=== PATIENT | female | born 1940 | race American Indian/Alaskan Native ===

== ENCOUNTER → 2017-02-08 | Outpatient (CLI) | payer MEDICARE ==
--- NOTE | 2017-02-08 09:42 | XR ---
EXAMINATION TYPE: XR abdomen 1V DATE OF EXAM: 02/08/2017 COMPARISON: NONE HISTORY: Left lower quadrant pain TECHNIQUE: One view abdominal series FINDINGS: The osseous structures are intact. The bowel gas pattern is nonspecific. There is a 3 mm calculus overlying the upper pole the right kidney and overlying the region of the ri ght UPJ. There are at least 3 calcifications overlying the left renal outline the largest of which measures 6 mm in the mid and upper poles. Hypertrophic change of the spine. No evidence of bowel obstruction with extensive retained fecal debr is. Previous gallbladder surgery noted. Vascular calcification suspected in the pelvis. Aortic calcif ication noted. IMPRESSION: 1. Nonspecific abdomen. Bilateral nephrolithiasis with suspected right UPJ calcification measuring 3 mm in upper pole 3 mm right renal calculus. 2. Punctate left-sided nephrolithiasis. Larger 6 mm calcification in the midpole. 2 definite calcific ations are seen.
== END | disposition home or self-care (01) ==
LOC: RADXRMAIN 09:19
PROVIDERS: ATTEND Urology
DX: N20.0 Calculus of kidney (principal)
CPT/HCPCS: 74000

== ENCOUNTER 2017-04-19 08:05 | Inpatient (IN) | payer MEDICARE ==
[2017-04-19] MEDS ORDERED: NITROGLYCERIN OINT 1 INCH/GM PACKET TOPICAL STA (08:37)
[2017-04-19] MEDS ORDERED: ASPIRIN 81 MG PO STA (08:37)
--- NOTE | 2017-04-19 08:42 | ED ---
General Adult HPI - General Chief complaint: Chest Pain Stated complaint: Chest pain Time Seen by Provider: 04/19/17 08:30 Source: patient, RN notes reviewed Mode of arrival: ambulatory Limitations: no limitations - History of Present Illness Initial comments: Patient is a pleasant 76-year-old female presenting to the emergency Department with chest discomfort. Onset was around 5 AM this morning. Patient was arty awake. Discomfort felt like tightness without radiation. No shortness of breath. Patient did feel nauseated and diaphoretic. Patient took 3 nitroglycerin with slow improvement and resolution of discomfort. Discomfort feels somewhat similar to previous times when she needed stents. Patient did have a recent abnormal stress test and is scheduled for heart catheterization in the beginning of April. - Related Data Home Medications Medication Instructions Recorded Confirmed Acetaminophen Tab [Tylenol Tab] 325 mg PO Q6H PRN 04/19/17 04/19/17 Aspirin [Adult Low Dose Aspirin EC] 81 mg PO DAILY 04/19/17 04/19/17 Beclomethasone Dip 80 Mcg/Puff 1 puff INHALATION RT-DAILY PRN 04/19/17 04/19/17 [Qvar 80 mcg] Clopidogrel [Plavix] 75 mg PO DAILY 04/19/17 04/19/17 Losartan/Hydrochlorothiazide 1 tab PO DAILY 04/19/17 04/19/17 [Hyzaar 100-12.5 Tablet] Vits A,C,E/Lutein/Minerals 1 tab PO DAILY 04/19/17 04/19/17 [Ocuvite with Lutein Tablet] amLODIPine [Norvasc] 2.5 mg PO DAILY 04/19/17 04/19/17 Allergies Allergy/AdvReac Type Severity Reaction Status Date / Time clarithromycin Allergy Unknown Verified 04/19/17 09:19 morphine Allergy Unknown Verified 04/19/17 09:19 omeprazole Allergy Unknown Verified 04/19/17 09:19 Penicillins Allergy Unknown Verified 04/19/17 09:19 pravastatin Allergy Unknown Verified 04/19/17 09:19 Sulfa (Sulfonamide Allergy Unknown Verified 04/19/17 09:19 Antibiotics) trimethoprim Allergy Unknown Verified 04/19/17 09:19 Review of Systems ROS Statement: Those systems with pertinent positive or pertinent negative responses have been documented in the HPI. ROS Other: All systems not noted in ROS Statement are negative. Constitutional: Denies: fever Eyes: Denies: eye pain ENT: Denies: ear pain Respiratory: Denies: cough, dyspnea Cardiovascular: Reports: chest pain Endocrine: Denies: fatigue Gastrointestinal: Reports: nausea. Denies: abdominal pain Genitourinary: Denies: dysuria Musculoskeletal: Denies: back pain Skin: Denies: rash Neurological: Denies: weakness Past Medical History Past Medical History: Asthma, Hypertension Additional Past Medical History / Comment(s): 30 day heart monitor, History of Any Multi-Drug Resistant Organisms: None Reported Past Surgical History: Cholecystectomy, Hysterectomy Additional Past Surgical History / Comment(s): chemical stress test, 2 stents in left kidney, right rotator cuff Past Psychological History: Anxiety Smoking Status: Never smoker Past Alcohol Use History: None Reported Past Drug Use History: None Reported General Exam Limitations: no limitations General appearance: alert, in no apparent distress Head exam: Present: atraumatic Eye exam: Present: normal appearance, PERRL ENT exam: Present: normal oropharynx Neck exam: Present: normal inspection Respiratory exam: Present: normal lung sounds bilaterally Cardiovascular Exam: Present: regular rate, normal rhythm Expanded Peripheral pulses: 2+: Radial (R), Radial (L), Dorsalis Pedis (R), Dorsalis Pedis (L) GI/Abdominal exam: Present: soft. Absent: tenderness Extremities exam: Present: normal inspection. Absent: pedal edema, calf tenderness Neurological exam: Present: alert Psychiatric exam: Present: normal affect, normal mood Skin exam: Present: normal color Course Vital Signs 04/19/17 04/19/17 04/19/17 08:07 09:12 10:00 Temperature 97.5 F L Pulse Rate 70 59 L 64 Respiratory 16 18 18 Rate Blood Pressure 177/78 163/89 168/86 O2 Sat by Pulse 100 99 99 Oximetry EKG Findings - EKG Comments: EKG Findings:: Normal sinus rhythm 69. AL 138. QRS 140. QT 488. QTC 522. Left axis. Right bundle branch block. Nonspecific T waves. Medical Decision Making - Medical Decision Making Patient reevaluated and resting comfortably in bed. Patient updated on results and plan. Case discussed in detail with Dr. Lucas, who will admit for Dr. Trinidad. - Lab Data Result diagrams: 04/19/17 08:24 04/19/17 08:24 Lab Results 04/19/17 04/19/17 04/19/17 Range/Units 08:24 08:24 08:24 WBC 8.5 (3.8-10.6) k/uL RBC 4.31 (3.80-5.40) m/uL Hgb 14.3 (11.4-16.0) gm/dL Hct 40.1 (34.0-46.0) % MCV 93.1 (80.0-100.0) fL MCH 33.2 (25.0-35.0) pg MCHC 35.7 (31.0-37.0) g/dL RDW 12.3 (11.5-15.5) % Plt Count 301 (150-450) k/uL Neutrophils % 61 % Lymphocytes % 27 % Monocytes % 6 % Eosinophils % 2 % Basophils % 1 % Neutrophils # 5.2 (1.3-7.7) k/uL Lymphocytes # 2.3 (1.0-4.8) k/uL Monocytes # 0.5 (0-1.0) k/uL Eosinophils # 0.2 (0-0.7) k/uL Basophils # 0.1 (0-0.2) k/uL PT (9.0-12.0) sec INR (<1.2) APTT (22.0-30.0) sec Sodium 142 (137-145) mmol/L Potassium 3.5 (3.5-5.1) mmol/L Chloride 104 (98-107) mmol/L Carbon Dioxide 26 (22-30) mmol/L Anion Gap 12 mmol/L BUN 12 (7-17) mg/dL Creatinine 0.68 (0.52-1.04) mg/dL Est GFR (MDRD) Af Amer >60 (>60 ml/min/1.73 sqM) Est GFR (MDRD) Non-Af >60 (>60 ml/min/1.73 sqM) Glucose 131 H (74-99) mg/dL Calcium 9.8 (8.4-10.2) mg/dL Magnesium 1.7 (1.6-2.3) mg/dL Total Bilirubin 1.6 H (0.2-1.3) mg/dL AST 23 (14-36) U/L ALT 19 (9-52) U/L Alkaline Phosphatase 88 (38-126) U/L Total Creatine Kinase 107 (30-135) U/L CK-MB (CK-2) 0.8 (0.0-2.4) ng/mL CK-MB (CK-2) Rel Index 0.7 Troponin I <0.012 (0.000-0.034) ng/mL Total Protein 7.0 (6.3-8.2) g/dL Albumin 4.2 (3.5-5.0) g/dL 04/19/17 Range/Units 08:24 WBC (3.8-10.6) k/uL RBC (3.80-5.40) m/uL Hgb (11.4-16.0) gm/dL Hct (34.0-46.0) % MCV (80.0-100.0) fL MCH (25.0-35.0) pg MCHC (31.0-37.0) g/dL RDW (11.5-15.5) % Plt Count (150-450) k/uL Neutrophils % % Lymphocytes % % Monocytes % % Eosinophils % % Basophils % % Neutrophils # (1.3-7.7) k/uL Lymphocytes # (1.0-4.8) k/uL Monocytes # (0-1.0) k/uL Eosinophils # (0-0.7) k/uL Basophils # (0-0.2) k/uL PT 10.2 (9.0-12.0) sec INR 1.0 (<1.2) APTT 22.8 (22.0-30.0) sec Sodium (137-145) mmol/L Potassium (3.5-5.1) mmol/L Chloride (98-107) mmol/L Carbon Dioxide (22-30) mmol/L Anion Gap mmol/L BUN (7-17) mg/dL Creatinine (0.52-1.04) mg/dL Est GFR (MDRD) Af Amer (>60 ml/min/1.73 sqM) Est GFR (MDRD) Non-Af (>60 ml/min/1.73 sqM) Glucose (74-99) mg/dL Calcium (8.4-10.2) mg/dL Magnesium (1.6-2.3) mg/dL Total Bilirubin (0.2-1.3) mg/dL AST (14-36) U/L ALT (9-52) U/L Alkaline Phosphatase (38-126) U/L Total Creatine Kinase (30-135) U/L CK-MB (CK-2) (0.0-2.4) ng/mL CK-MB (CK-2) Rel Index Troponin I (0.000-0.034) ng/mL Total Protein (6.3-8.2) g/dL Albumin (3.5-5.0) g/dL - Radiology Data Radiology results: image reviewed (Chest x-ray shows no acute process) Critical Care Time Critical Care Time: Yes Total Critical Care Time: 31 Disposition Clinical Impression: Unstable angina pectoris Disposition: ADMITTED IP TO THIS HOSP Referrals: Pablo Trinidad MD [Primary Care Provider] - 1-2 days Decision Time: 10:55
--- NOTE | 2017-04-19 08:53 | XR ---
EXAMINATION TYPE: XR chest 2V DATE OF EXAM: 04/19/2017 COMPARISON: NONE TECHNIQUE: PA and lateral views submitted. HISTORY: Chest pain FINDINGS: The lungs are clear and there is no pneumothorax, pleural effusion, or focal pneumonia. Postsurgica l change right shoulder. Atherosclerotic change aorta. Hyperinflation suggests COPD. And previous cor onary artery stenting. Diffuse osteopenia and arthropathy of the AC joints. No overt failure. Surgical clips in the right upper quadrant noted. IMPRESSION: 1. Correlate for COPD..
[2017-04-19 09:51] LABS: Basophils # (A) 0.1 k/uL (0-0.2); Basophils % (A) 1 %; CH 32.3; CHCM 34.8; Eosinophils # (A) 0.2 k/uL (0-0.7); Eosinophils % (A) 2 %; HCT 40.1 % (34.0-46.0); HDW 2.54; HGB 14.3 gm/dL (11.4-16.0); Luc # (Auto) 0.21; Luc % (Auto) 3; Lymphocytes # (A) 2.3 k/uL (1.0-4.8); Lymphocytes % (A) 27 %; MCH 33.2 pg (25.0-35.0); MCHC 35.7 g/dL (31.0-37.0); MCV 93.1 fL (80.0-100.0); Mean Platelet Volume 7.2; Monocytes # (A) 0.5 k/uL (0-1.0); Monocytes % (A) 6 %; Neutrophils # (A) 5.2 k/uL (1.3-7.7); Neutrophils % (A) 61 %; RBC 4.31 m/uL (3.80-5.40); RDW 12.3 % (11.5-15.5); WBC 8.5 k/uL (3.8-10.6); WBC (Perox) 8.38
[2017-04-19 09:52] LABS: Partial Thromboplastin Time 22.8 sec (22.0-30.0); Prothrombin Time 10.2 sec (9.0-12.0)
[2017-04-19 09:56] LABS: ALT 19 U/L (9-52); AST 23 U/L (14-36); Alkaline Phosphatase 88 U/L (38-126); Anion Gap 12 mmol/L; Blood Urea Nitrogen 12 mg/dL (7-17); Calcium 9.8 mg/dL (8.4-10.2); Carbon Dioxide 26 mmol/L (22-30); Chloride 104 mmol/L (98-107); Glucose 131 mg/dL (74-99); Magnesium 1.7 mg/dL (1.6-2.3); Non-African American GFR(MDRD) >60 (>60 ml/min/1.73 sqM); Potassium 3.5 mmol/L (3.5-5.1); Sodium 142 mmol/L (137-145); Total Bilirubin 1.6 mg/dL (0.2-1.3)
[2017-04-19 10:16] LABS: Creatine Kinase 107 U/L (30-135)
[2017-04-19 10:28] LABS: Creatine Kinase MB 0.8 ng/mL (0.0-2.4); Troponin I <0.012 ng/mL (0.000-0.034)
[2017-04-19] MEDS ORDERED: NITROGLYCERIN SL TABS 0.4 MG TAB SUBLINGUAL PRN (10:56)
[2017-04-19] MEDS ORDERED: HEPARIN SODIUM,PORCINE 5,000 UNIT/ML 1 ML VIAL IV ONE (10:56)
[2017-04-19] MEDS: HEPARIN SODIUM,PORCINE/D5W PMX 25,000 UNIT in DEXTROSE/WATER 1 500ML.BAG IV SCH (11:31)
[2017-04-19] MEDS ORDERED: NITROGLYCERIN OINT 1 INCH/GM PACKET TOPICAL SCH (12:00)
[2017-04-19 14:44] LABS: Creatine Kinase 82 U/L (30-135)
[2017-04-19 14:57] LABS: Creatine Kinase MB 0.6 ng/mL (0.0-2.4); Troponin I <0.012 ng/mL (0.000-0.034)
--- NOTE | 2017-04-19 15:32 | P.CRDCN ---
History of Present Illness Consult date: 04/19/17 History of present illness: This is a 76-year-old female. She follows with Dr. Harris as an outpatient. She has past medical history significant for CAD with previous stenting at [facility] in 2005 and again in 2009. She underwent diagnostic cath in 2013 which revealed left main free of disease, circumflex free of disease, LAD with long area of stenting in mid-region with an area of restenosis 30-40% and distal to stent 50% stenosis. 1st diagonal with 80% ostial stenosis, 2nd with 60 -70% ostial stenosis. She recently underwent a Lexiscan in the office and it revealed evidence of moderate reversible defect involving ateroapical and laterl ischemia in area of LAD with fair systolic function suggestive of hypokinesia of inferior segment. The patient was made aware of these results and was scheduled for cardiac catheterization 04/[address] Pike. She presented to the hospital today with complaints of midsternal chest heaviness and tightness. She states the pain was excrutiating in nature and persistent. The pain radiated to the left neck region. She also had associated dizziness, nausea and diaphoresis. She denies shortness of breath or pain in the arm or back. She took 3 SL nitroglycerin at home and got mild relief. She states the pain is still there mildly and feels like it is starting to come on stronger again. She also has hypertension and asthma. Chest xray reveals hyperinflation. She is a non-smoker. Troponin negative x2, BUN 12, Cr 0.68. Review of Systems Extensive review of systems performed, negative except mentioned in HPI. Past Medical History Past Medical History: Asthma, Coronary Artery Disease (CAD), Chest Pain / Angina , Hypertension, Pneumonia Additional Past Medical History / Comment(s): Recent abnormal stress test- scheduled for cardiac cath 04/28/17, "borderline diabetes", UTIs, nephritis. History of Any Multi-Drug Resistant Organisms: None Reported Past Surgical History: Breast Surgery, Cholecystectomy, Heart Catheterization With Stent, Hysterectomy, Orthopedic Surgery, Tonsillectomy, Tubal Ligation Additional Past Surgical History / Comment(s): 2008 and 2010 PCI with stenting, R rotator cuff repair, D&C, L oophorectomy d/t cyst, L kidney with 2 stents since removed, colonoscopy with benign polypectomy, L breast bx-benign, bilateral cataract removals with lens implants. Past Anesthesia/Blood Transfusion Reactions: Postoperative Nausea & Vomiting ( PONV) Additional Past Anesthesia/Blood Transfusion Reaction / Comment(s): Pt received blood in 1965 without reaction. Date of Last Stent Placement:: 2010 Past Psychological History: Anxiety Additional Psychological History / Comment(s): Pt resides with her spouse and her adult great grandson. She is independent. Smoking Status: Never smoker Past Alcohol Use History: None Reported Past Drug Use History: None Reported - Past Family History Father Family Medical History: Liver Disease Additional Family Medical History / Comment(s): Father at the age of 52yrs from liver cirrhosis. He had ETOH abuse. Mother Family Medical History: No Reported History Additional Family Medical History / Comment(s): Mother was healthy and lived to be 93 yrs old. Medications and Allergies Home Medications Medication Instructions Recorded Confirmed Type Acetaminophen Tab [Tylenol Tab] 325 mg PO Q6H PRN 04/19/17 04/19/17 History Aspirin [Adult Low Dose Aspirin EC] 81 mg PO DAILY 04/19/17 04/19/17 History Beclomethasone Dip 80 Mcg/Puff 1 puff INHALATION RT-DAILY PRN 04/19/17 04/19/17 History [Qvar 80 mcg] Clopidogrel [Plavix] 75 mg PO DAILY 04/19/17 04/19/17 History Losartan/Hydrochlorothiazide 1 tab PO DAILY 04/19/17 04/19/17 History [Hyzaar 100-12.5 Tablet] Vits A,C,E/Lutein/Minerals 1 tab PO DAILY 04/19/17 04/19/17 History [Ocuvite with Lutein Tablet] amLODIPine [Norvasc] 2.5 mg PO DAILY 04/19/17 04/19/17 History Allergies Allergy/AdvReac Type Severity Reaction Status Date / Time clarithromycin Allergy Unknown Verified 04/19/17 09:19 morphine Allergy Unknown Verified 04/19/17 09:19 omeprazole Allergy Unknown Verified 04/19/17 09:19 Penicillins Allergy Unknown Verified 04/19/17 09:19 pravastatin Allergy Unknown Verified 04/19/17 09:19 Sulfa (Sulfonamide Allergy Unknown Verified 04/19/17 09:19 Antibiotics) trimethoprim Allergy Unknown Verified 04/19/17 09:19 Physical Exam Vitals: Vital Signs Temp Pulse Pulse Resp BP BP Pulse Ox 04/19/17 13:04 97.8 F 60 18 159/74 98 04/19/17 11:39 98 F 70 18 170/86 100 04/19/17 10:00 64 18 168/86 99 04/19/17 09:12 59 L 18 163/89 99 04/19/17 08:07 97.5 F L 70 16 177/78 100 Intake and Output 04/19/17 04/19/17 04/19/17 06:59 14:59 22:59 Intake Total 240 Balance 240 Intake: Oral 240 Other: Weight 53.1 kg Patient Weight 04/20/17 06:59 Weight 53.1 kg GENERAL: This is a 76-year-old male in no apparent distress at the time of my examination. HEENT: Head is atraumatic, normocephalic. Pupils are equal, round. Sclerae anicteric. Conjunctivae are clear. Mucous membranes of the mouth are moist. Neck is supple. There is no jugular venous distention. No carotid bruit is heard. LUNGS: Clear to auscultation no wheezes, rales or rhonchi. No chest wall tenderness is noted on palpation or with deep breathing. HEART: Regular rate and rhythm without murmurs, rubs or gallops. S1 and S2 heard. ABDOMEN: Soft, nontender. Bowel sounds are heard. No organomegaly noted. EXTREMITIES: 2+ peripheral pulses with no evidence of peripheral edema and no calf tenderness noted. NEUROLOGIC: Patient is awake, alert and oriented x3. Results 04/19/17 08:24 04/19/17 08:24 Cardiac Enzymes 04/19/17 04/19/17 04/19/17 Range/Units 08:24 08:24 14:00 AST 23 (14-36) U/L CK-MB (CK-2) 0.8 0.6 (0.0-2.4) ng/mL Troponin I <0.012 <0.012 (0.000-0.034) ng/mL Coagulation 04/19/17 Range/Units 08:24 PT 10.2 (9.0-12.0) sec APTT 22.8 (22.0-30.0) sec CBC 04/19/17 Range/Units 08:24 WBC 8.5 (3.8-10.6) k/uL RBC 4.31 (3.80-5.40) m/uL Hgb 14.3 (11.4-16.0) gm/dL Hct 40.1 (34.0-46.0) % Plt Count 301 (150-450) k/uL Comprehensive Metabolic Panel 04/19/17 Range/Units 08:24 Sodium 142 (137-145) mmol/L Potassium 3.5 (3.5-5.1) mmol/L Chloride 104 (98-107) mmol/L Carbon Dioxide 26 (22-30) mmol/L BUN 12 (7-17) mg/dL Creatinine 0.68 (0.52-1.04) mg/dL Glucose 131 H (74-99) mg/dL Calcium 9.8 (8.4-10.2) mg/dL AST 23 (14-36) U/L ALT 19 (9-52) U/L Alkaline Phosphatase 88 (38-126) U/L Total Protein 7.0 (6.3-8.2) g/dL Albumin 4.2 (3.5-5.0) g/dL Current Medications Generic Name Dose Route Start Last Admin Trade Name Freq PRN Reason Stop Dose Admin Aspirin 325 mg 04/20/17 09:00 Aspirin PO DAILY JOS Heparin Sodium (Porcine) 0 unit 04/19/17 10:56 Heparin IV Q6HR PRN Low PTT Protocol Heparin Sodium/Dextrose 25,000 500 mls @ 12.62 mls/hr 04/19/17 11:00 11:31 unit/ IV Solution IV 12 units/kg/hr .Q24H JOS 12.62 mls/hr Protocol Administration 12 UNITS/KG/HR Nitroglycerin/Dextrose 50 mg/ 250 mls @ 1.5 mls/hr 04/19/17 15:00 IV Solution IV .Q24H JOS Protocol 5 MCG/MIN Nitroglycerin 0.5 inch 04/19/17 12:00 Nitro-Bid Oint TOPICAL Q6HR JOS Nitroglycerin 0.4 mg 04/19/17 10:56 Nitrostat SUBLINGUAL Q5M PRN Chest Pain Sodium Chloride 10 ml 04/19/17 21:00 Saline Flush IV BID JOS Intake and Output 04/19/17 04/19/17 04/19/17 06:59 14:59 22:59 Intake Total 240 Balance 240 Intake: Oral 240 Other: Weight 53.1 kg Patient Weight 04/20/17 06:59 Weight 53.1 kg 04/19/17 08:24 04/19/17 08:24 EKG Interpretations (text) EKG indicates right bundle branch block with T-wave inversions. Assessment and Plan Plan: ASSESSMENT 1. Unstable angina 2. Coronary artery disease 3. Hypertension 4. Right bundle branch block PLAN Start atorvastain 40mg PO daily, give first dose now. She should be started on nitroglycerin drip and transferred to selective care. Obtain repeat EKG if she has increasing chest pain. Case discussed with Dr. Pike. Catheterization recommendations at this time are to medically manage with nitrates, if she has increased or ongoing chest pain she will be studies today. If she is stable she will have procedure tomorrow. Nursing staff and patient have been updated with plan of care. Nurse Practitioner note has been reviewed, I agree with a documented findings and plan of care. Patient was seen and examined.
[2017-04-19 16:44] LABS: Glucose,Whole Blood 139 mg/dL (75-99)
[2017-04-19] MEDS: NITROGLYCERIN-D5W PMX 50 MG in DEXTROSE/WATER 1 250ML.BAG IV SCH (17:21)
[2017-04-19] MEDS: ATORVASTATIN 40 MG TAB PO SCH (17:30)
[2017-04-19] MEDS ORDERED: diphenhydrAMINE 50 MG CAP PO PRN (17:36)
[2017-04-19] MEDS ORDERED: ACETAMINOPHEN TAB 325 MG TAB PO PRN (18:00)
[2017-04-19] MEDS ORDERED: BUDESONIDE 1 MG/2 ML NEBU INHALATION PRN (18:00)
[2017-04-19] MEDS ORDERED: diphenhydrAMINE 50 MG/ML 1 ML VIAL IVP PRN (18:02)
[2017-04-19] MEDS: HEPARIN SODIUM,PORCINE 5,000 UNIT/ML 1 ML VIAL IV PRN (18:21)
[2017-04-19] MEDS: ACETAMINOPHEN TAB 325 MG TAB PO PRN (18:22)
[2017-04-19 20:42] LABS: Glucose,Whole Blood 161 mg/dL (75-99)
[2017-04-19 21:58] LABS: Creatine Kinase 65 U/L (30-135)
[2017-04-19 22:13] LABS: Creatine Kinase MB 0.4 ng/mL (0.0-2.4); Troponin I <0.012 ng/mL (0.000-0.034)
[2017-04-20] MEDS: ACETAMINOPHEN TAB 325 MG TAB PO PRN ×3 (03:33→19:31)
[2017-04-20 06:12] LABS: Glucose,Whole Blood 153 mg/dL (75-99)
[2017-04-20 06:41] LABS: Basophils % (A) 1 %; CH 32.2; CHCM 34.2; Eosinophils # (A) 0.2 k/uL (0-0.7); Eosinophils % (A) 3 %; HCT 34.4 % (34.0-46.0); HDW 2.53; HGB 11.6 gm/dL (11.4-16.0); Luc # (Auto) 0.12; Luc % (Auto) 1; Lymphocytes # (A) 2.2 k/uL (1.0-4.8); Lymphocytes % (A) 26 %; MCHC 33.9 g/dL (31.0-37.0); MCV 94.5 fL (80.0-100.0); Mean Platelet Volume 7.3; Monocytes # (A) 0.5 k/uL (0-1.0); Monocytes % (A) 6 %; Neutrophils # (A) 5.5 k/uL (1.3-7.7); Neutrophils % (A) 64 %; RBC 3.63 m/uL (3.80-5.40); RDW 12.3 % (11.5-15.5); WBC 8.5 k/uL (3.8-10.6); WBC (Perox) 8.91
[2017-04-20] MEDS: CLOPIDOGREL 75 MG TAB PO SCH (06:51)
[2017-04-20] MEDS: ATORVASTATIN 40 MG TAB PO SCH (06:51)
[2017-04-20] MEDS: LOSARTAN 50 MG TAB PO SCH (06:51)
[2017-04-20] MEDS: ASPIRIN 325 MG TAB PO SCH (06:51)
[2017-04-20] MEDS: VIT A,C & E-LUTEIN-MINERALS 1 EACH TAB PO SCH (06:52)
[2017-04-20 07:03] LABS: Cholesterol 179 mg/dL (<200); HDL Cholesterol 50 mg/dL (40-60)
[2017-04-20] MEDS ORDERED: SODIUM CHLORIDE 0.9% 1,000 ML in EMPTY BAG 1 BAG IV ONE ×2 (08:37→14:29)
[2017-04-20] MEDS ORDERED: NITROGLYCERIN SL TABS 0.4 MG TAB SUBLINGUAL PRN (08:37)
[2017-04-20] MEDS ORDERED: ALPRAZolam 0.5 MG TAB PO PRN (08:37)
[2017-04-20] MEDS ORDERED: ALPRAZolam 0.25 MG TAB PO PRN (08:37)
[2017-04-20] MEDS ORDERED: LOSARTAN-HCTZ 50-12.5 MG 1 EACH TAB PO SCH (09:00)
[2017-04-20] MEDS ORDERED: LOSARTAN 50 MG TAB PO SCH (09:00)
[2017-04-20] MEDS ORDERED: NON-FORMULARY DRUG (Aspirin [Adult Low Dose Aspirin Ec] 81 MG) PO SCH (09:00)
[2017-04-20] MEDS ORDERED: amLODIPine 2.5 MG TAB PO SCH (09:00)
--- NOTE | 2017-04-20 09:42 | ECHOF ---
Referral Reason:chest pain MEASUREMENTS -------- HEIGHT: 162.6 cm WEIGHT: 50.3 kg BP: 120/70 IVSd: 1.3 cm (0.6 - 1.1) LVIDd: 3.6 cm (3.9 - 5.3) LVPWd: 1.3 cm (0.6 - 1.1) IVSs: 1.5 cm LVIDs: 2.7 cm LVPWs: 1.6 cm Ao Diam: 3.0 cm (2.0 - 3.7) AV Cusp: 1.5 cm (1.5 - 2.6) LA Diam: 2.2 cm (2.7 - 3.8) MV EXCURSION: 12.148 mm (> 18.000) MV EF SLOPE: 58 mm/s (70 - 150) EPSS: 0.6 cm MV E Itz: 0.63 m/s MV DecT: 230 ms MV A Itz: 0.89 m/s MV E/A Ratio: 0.71 AR PHT: 381 ms RAP: 5.00 mmHg RVSP: 21.56 mmHg FINDINGS -------- Sinus rhythm. This was a technically good study. The left ventricular size is normal. There is mild concentric left ventricular hypertrophy. Overall left ventricular systolic function is normal with, an EF between 60 - 65 %. The right ventricle is normal in size and function. The left atrium is normal in size. The right atrium is normal in size. There is mild aortic regurgitation. The mitral valve leaflets are mildly thickened. Mild mitral regurgitation is present. Trace tricuspid regurgitation present. The right ventricular systolic pressure, as measured by Doppler, is 21.56mmHg. Pulmonic valve appears structurally normal. The aortic root, ascending aorta and aortic arch are normal. The pericardium is normal. CONCLUSIONS -------- 1. Sinus rhythm. 2. The mitral valve leaflets are mildly thickened. 3. Mild mitral regurgitation is present. 4. Trace tricuspid regurgitation present. 5. The right ventricular systolic pressure, as measured by Doppler, is 21.56mmHg. 6. Pulmonic valve appears structurally normal. 7. The aortic root, ascending aorta and aortic arch are normal. 8. The pericardium is normal. 9. This was a technically good study. 10. The left ventricular size is normal. 11. There is mild concentric left ventricular hypertrophy. 12. Overall left ventricular systolic function is normal with, an EF between 60 - 65 %. 13. The right ventricle is normal in size and function. 14. The left atrium is normal in size. 15. The right atrium is normal in size. 16. There is mild aortic regurgitation. MANAGER ACADEMIC: Meera Villalpando RDCS
[2017-04-20] MEDS ORDERED: MIDAZOLAM 2 MG/2 ML VIAL IVP ONE (10:40)
[2017-04-20] MEDS ORDERED: LIDOCAINE 2% INJ 20 MG/ML SQ ONE (10:42)
[2017-04-20] MEDS ORDERED: HEPARIN SODIUM 1,000 UN/ML (10ML VL) IV ONE (10:45)
[2017-04-20] MEDS: VERAPAMIL SYRINGE (5 MG/10 ML) INTRAARTER ONE ×2 (10:45→11:03)
[2017-04-20] MEDS ORDERED: SODIUM CHLORIDE 0.9% 1,000 ML IV ONE (10:48)
[2017-04-20] MEDS ORDERED: IOHEXOL 350 MG/ML (PER ML) 100ML BTL INJ ONE (11:03)
[2017-04-20] MEDS ORDERED: RX INFO: IV CONTRAST WAS GIVEN 1 EACH MISC MISCELLANE PRN (11:07)
[2017-04-20] MEDS ORDERED: SODIUM CHLORIDE 0.9% 1,000 ML IV SCH (11:15)
[2017-04-20 11:39] LABS: Glucose,Whole Blood 126 mg/dL (75-99)
--- NOTE | 2017-04-20 12:19 | CC ---
CARDIAC CATHETERIZATION REPORT DATE OF SERVICE: 04/20/2017 PERFORMING PHYSICIAN: Luis Pike MD, junior data analyst. PROCEDURE PERFORMED: 1. Selective right and left coronary angiogram. 2. Left heart catheterization. INDICATION: This is a pleasant 76-year-old female patient who sees Dr. Harris as an outpatient with a known history of coronary artery disease and prior stenting of the LAD was performed at [facility]. The patient was experiencing chest discomfort and she underwent myocardial perfusion imaging stress test as an outpatient and came in to be abnormal showing anterior ischemia. She was scheduled to undergo a heart catheterization by myself in next few days, but she presented to the hospital with chest discomfort. APPROACH: Right radial artery. COMPLICATION: None. LEVEL OF SEDATION: Moderate with sedation length of 22 minutes. PROCEDURE DESCRIPTION: After obtaining an informed consent, the patient was brought to the cardiac slab miller operator. The right radial artery was cannulated using micropuncture technique, the micropuncture wire passed easily then I placed a 6-Gambian sheath in the right radial artery. Subsequently I gave the patient 2 mg of verapamil IA and 6000 units of heparin IV. After that, I did selective right and left coronary angiogram using JR3.5 and JL3 catheters and then I did left heart catheterization using the JR3.5, which flowed into the LV. I did after that, pull back. The procedure was completed without any complication. SELECTIVE CORONARY ANGIOGRAM: 1. The right coronary artery is a large caliber vessel and it is a dominant vessel. The proximal RCA appeared to be angiographically normal. The mid RCA has mild disease only. The RCA distally is normal and bifurcates into PDA and PLV branches, both are angiographically normal. 2. The left main is angiographically normal. It bifurcates into the left circumflex and left anterior descending artery. 3. The left circumflex is a large caliber vessel and it is a nondominant vessel. The proximal circumflex is angiographically normal and gives rise into a large OM branch, which has mild disease only. The circumflex continues after that as a moderate caliber vessel and has a second OM, which seems to be angiographically normal. 4. The left anterior descending artery; the proximal LAD appeared to have mild disease only. The mid LAD has a long tubular lesion with critical in-stent restenosis; appeared to be in the range of 80% to 90% involving a medium-sized diagonal branch. The LAD distally is angiographically normal. HEMODYNAMIC: The left ventricular end-diastolic pressure was normal for the 8 mmHg and no gradient was identified across the aortic valve. CONCLUSION: 1. Mild disease involving a large dominant right coronary artery. 2. Normal left main coronary artery. 3. Normal left circumflex coronary artery. 4. Critical in-stent restenosis involving the left anterior descending artery stent in the midportion with a long tubular lesion involving a diagonal as well. POSTPROCEDURE MANAGEMENT: The patient will be evaluated by a surgeon for GUERRERO to LAD and possibly SVG to diagonal. MMODL / IJN: [id number] /
--- NOTE | 2017-04-20 12:37 | P.HPIM ---
History of Present Illness H&P Date: 04/19/17 Chief Complaint: Chest pain 76 years old female patient of Dr. Trinidad and Dr. Harris with past medical history of coronary artery disease status post stent in 2008 in 2010, history of diet-controlled diabetes, hypertension, asthma presents at 5 AM this morning with chest pain which was in excruciating central in location radiating to the jaw neck and arm. Pain lasted half an hour but started back again at which time patient took nitroglycerin at home with minimal relief. Since the pain did not get any better she decided to come to the ED. Patient is seen by Dr. Harris who ordered a Lexiscan in the offices and was scheduled for cardiac cath in April of the Dr. Pike. Patient endorses sweating, dizziness, nausea during the episode but is feeling much better after starting on nitroglycerin drip. Patient denies any shortness of breath or chest pain. Labs including CBC , BMP was unremarkable. Glucose 131 with a creatinine of 0.68. Vision is seen by cardiology and will be undergoing cardiac catheterization tomorrow. Review of Systems Constitutional: Reports as per HPI Eyes: denies blurred vision, denies diplopia, denies irritation, denies itching , denies photophobia Ears: deny: decreased hearing Ears, nose, mouth and throat: Denies nasal discharge, Denies neck lump, Denies nose pain, Denies sinus pain Cardiovascular: Reports chest pain, Reports high blood pressure, Reports lightheadedness, Denies claudication, Denies decreased exercise tolerance, Denies dyspnea on exertion, Denies edema, Denies irregular heart beat, Denies leg edema, Denies orthopnea, Denies palpitations, Denies rapid heart beat, Denies shortness of breath, Denies syncope Respiratory: Denies cough with sputum, Denies dyspnea Gastrointestinal: Denies abdominal pain, Denies belching, Denies bloating, Denies BRBPR, Denies change in bowel habits Genitourinary: Denies dysuria, Denies flank pain, Denies urgency, Denies urinary frequency, Denies vaginal dryness Musculoskeletal: Denies arm numbness/tingling, Denies leg numbness/tingling, Denies limitation of motion, Denies morning stiffness, Denies muscle cramps, Denies muscle weakness Integumentary: Denies dryness, Denies growths, Denies rash, Denies unusual bruising Neurological: Denies change in mentation, Denies loss of vision, Denies memory loss, Denies migraines, Denies motor disturbance, Denies numbness, Denies paralysis, Denies paresthesias, Denies seizures Endocrine: Reports high blood sugars, Denies cold intolerance, Denies excessive sweating, Denies excessive thirst Past Medical History Past Medical History: Asthma, Coronary Artery Disease (CAD) (Coronary artery disease status post stenting in 2008 in 2010), Chest Pain / Angina, Hypertension , Pneumonia Additional Past Medical History / Comment(s): Recent abnormal stress test- scheduled for cardiac cath 04/28/17, "borderline diabetes", UTIs, nephritis. History of Any Multi-Drug Resistant Organisms: None Reported Past Surgical History: Breast Surgery, Cholecystectomy, Heart Catheterization With Stent, Hysterectomy, Orthopedic Surgery, Tonsillectomy, Tubal Ligation Additional Past Surgical History / Comment(s): 2008 and 2010 PCI with stenting, R rotator cuff repair, D&C, L oophorectomy d/t cyst, L kidney with 2 stents since removed, colonoscopy with benign polypectomy, L breast bx-benign, bilateral cataract removals with lens implants. Past Anesthesia/Blood Transfusion Reactions: Postoperative Nausea & Vomiting ( PONV) Additional Past Anesthesia/Blood Transfusion Reaction / Comment(s): Pt received blood in 1965 without reaction. Date of Last Stent Placement:: 2010 Past Psychological History: Anxiety Additional Psychological History / Comment(s): Pt resides with her spouse and her adult great grandson. She is independent. Smoking Status: Never smoker Past Alcohol Use History: None Reported Past Drug Use History: None Reported Additional History: Patient lives with her and is functional at baseline. Denies any use of cane or walker. Helps take grandkid to school - Past Family History Father Family Medical History: Liver Disease Additional Family Medical History / Comment(s): Father at the age of 52yrs from liver cirrhosis. He had ETOH abuse. Mother Family Medical History: No Reported History Additional Family Medical History / Comment(s): Mother was healthy and lived to be 93 yrs old. Son(s) Family Medical History: Coronary Artery Disease (CAD) (At the age of 58), Diabetes Mellitus Daughter(s) Family Medical History: Coronary Artery Disease (CAD) (Patient's daughter has heart condition and the other daughter has autism and lives in the fdc) Medications and Allergies Home Medications Medication Instructions Recorded Confirmed Type Acetaminophen Tab [Tylenol Tab] 325 mg PO Q6H PRN 04/19/17 04/19/17 History Aspirin [Adult Low Dose Aspirin EC] 81 mg PO DAILY 04/19/17 04/19/17 History Beclomethasone Dip 80 Mcg/Puff 1 puff INHALATION RT-DAILY PRN 04/19/17 04/19/17 History [Qvar 80 mcg] Clopidogrel [Plavix] 75 mg PO DAILY 04/19/17 04/19/17 History Losartan/Hydrochlorothiazide 1 tab PO DAILY 04/19/17 04/19/17 History [Hyzaar 100-12.5 Tablet] Vits A,C,E/Lutein/Minerals 1 tab PO DAILY 04/19/17 04/19/17 History [Ocuvite with Lutein Tablet] amLODIPine [Norvasc] 2.5 mg PO DAILY 04/19/17 04/19/17 History Allergies Allergy/AdvReac Type Severity Reaction Status Date / Time clarithromycin Allergy Unknown Verified 04/19/17 09:19 morphine Allergy Unknown Verified 04/19/17 09:19 omeprazole Allergy Unknown Verified 04/19/17 09:19 Penicillins Allergy Unknown Verified 04/19/17 09:19 pravastatin Allergy Unknown Verified 04/19/17 09:19 Sulfa (Sulfonamide Allergy Unknown Verified 04/19/17 09:19 Antibiotics) trimethoprim Allergy Unknown Verified 04/19/17 09:19 Physical Exam Vitals: Vital Signs Temp Pulse Pulse Pulse Resp BP BP 04/19/17 16:00 97.1 F L 66 14 136/74 04/19/17 13:04 97.8 F 60 18 159/74 04/19/17 11:39 98 F 70 18 170/86 04/19/17 10:00 64 18 168/86 04/19/17 09:12 59 L 18 163/89 04/19/17 08:07 97.5 F L 70 16 177/78 Pulse Ox 04/19/17 16:00 97 04/19/17 13:04 98 04/19/17 11:39 100 04/19/17 10:00 99 04/19/17 09:12 99 04/19/17 08:07 100 Intake and Output 04/19/17 04/19/1704/19/17 06:59 14:59 22:59 Intake Total 240 Balance 240 Intake: Oral 240 Other: Voiding Method Toilet Weight 53.1 kg Patient Weight 04/20/17 06:59 Weight 53.1 kg - Constitutional General appearance: average body habitus, cooperative, no acute distress - EENT Eyes: EOMI, PERRLA, no ptosis, no scleral icterus, normal appearance Ears: bilateral: normal - Neck Neck: no lymphadenopathy, no normal ROM Carotids: bilateral: upstroke normal - Respiratory Respiratory: bilateral: CTA, negative: diminished, dullness, rales, rhonchi, wheezing - Cardiovascular Rhythm: regular Heart sounds: normal: S1, S2 Abnormal Heart Sounds: no systolic murmur, no diastolic murmur ankle Peripheral Edema: bilateral: None - Gastrointestinal General gastrointestinal: no hepatomegaly, normal bowel sounds, soft, no tenderness - Integumentary Integumentary: no calor, no cyanotic, no decreased turgor, normal - Neurologic Neurologic: CNII-XII intact - Musculoskeletal Musculoskeletal: gait normal, strength equal bilaterally - Psychiatric Psychiatric: A&O x's 3, appropriate affect Results CBC & Chem 7: 04/19/17 08:24 04/19/17 08:24 Labs: Abnormal Lab Results - Last 24 Hours (Table) 04/19/17 04/19/17 Range/Units 08:24 16:30 Glucose 131 H (74-99) mg/dL POC Glucose (mg/dL) 139 H (75-99) mg/dL Total Bilirubin 1.6 H (0.2-1.3) mg/dL Thrombosis Risk Factor Assmnt - DVT/VTE Prophylaxis DVT/VTE Prophylaxis: Mechanical Prophylaxis ordered - Choose All That Apply Any of the Below Risk Factors Present?: Yes Other Risk Factors: Yes Each Risk Factor Represents 2 Points: Age 61-74 years Other congenital or acquired thrombophilia - If yes, enter type in comment: No Thrombosis Risk Factor Assessment Total Risk Factor Score: 2 Thrombosis Risk Factor Assessment Level: Low Risk Assessment and Plan Plan: #1 Cardiac chest pain- patient's significant history of coronary artery disease in the past with stenting associated with typical symptoms, symptoms are likely secondary to coronary artery disease - Continue aspirin, Plavix - Coronary cardiac catheterization tomorrow - Nothing by mouth after midnight - Patient is ALLERGIC to pravastatin with hives, 15 years ago - Patient received atorvastatin this evening, will be monitored for anaphylaxis. Benadryl ordered - Continue nitroglycerin drip - Tylenol when necessary for headache #2 asthma- continue DuoNeb when necessary shortness of breath #3 hypertension- hold hydrochlorothiazide, continue amlodipine and losartan #4 diet-controlled diabetes- insulin sliding scale #5 DVT prophylaxis- mechanical prophylaxis with HARSH hose #6 disposition- patient is undergoing cardiac catheterization and will be inpatient for the next 2 days #7 CODE STATUS full code
--- NOTE | 2017-04-20 15:47 | P.GSCN ---
History of Present Illness Consult date: 04/20/17 Reason for Consult: Coronary artery disease, treatment recommendations. Requesting physician: Luis Pike History of present illness: This 76-year-old female with a previous medical history of coronary artery disease with stenting in the left anterior descending artery back in 2008 and [address] Harris as an outpatient. Apparently she was recently starting to have the same chest heaviness and tightness with radiation to her left neck and associated dizziness, nausea, and diaphoresis that she had before her previous stents. She did have a stress test done in Dr. Harris's office which demonstrated evidence of moderate reversible defect involving anteroapical and lateral ischemia in the area of her LAD. She was recommended to undergo heart catheterization and was scheduled with Dr. Pike on 04/28/2017. She began having anginal-type symptoms at home with some relief from 3 sublingual nitroglycerin and she presented to the emergency room yesterday. She was taken this morning it to the [facility] by Dr. Pike which demonstrated in stent re-stenosis in the range of 80-90% with mild disease in the large right coronary artery, and normal left main and circumflex coronary arteries. Dr. Casper was consulted from cardiothoracic surgery to evaluate surgical revascularization versus placement of another stent. Review of Systems 14 point review systems was completed and was negative except as noted. - Cardiovascular Reports as per HPI, Reports chest pain - Gastrointestinal Reports as per HPI, Reports nausea Past Medical History Past Medical History: Asthma, Coronary Artery Disease (CAD) (Coronary artery disease status post stenting in 2008 in 2010), Chest Pain / Angina, Hypertension , Pneumonia Additional Past Medical History / Comment(s): Recent abnormal stress test- scheduled for cardiac cath 04/28/17, "borderline diabetes", UTIs, nephritis. History of Any Multi-Drug Resistant Organisms: None Reported Past Surgical History: Breast Surgery, Cholecystectomy, Heart Catheterization With Stent, Hysterectomy, Orthopedic Surgery, Tonsillectomy, Tubal Ligation Additional Past Surgical History / Comment(s): 2008 and 2010 PCI with stenting, R rotator cuff repair, D&C, L oophorectomy d/t cyst, L kidney with 2 stents since removed, colonoscopy with benign polypectomy, L breast bx-benign, bilateral cataract removals with lens implants. Past Anesthesia/Blood Transfusion Reactions: Postoperative Nausea & Vomiting ( PONV) Additional Past Anesthesia/Blood Transfusion Reaction / Comm: Pt received blood in 1965 without reaction. Date of Last Stent Placement:: 2010 Past Psychological History: Anxiety Additional Psychological History / Comment(s): Pt resides with her spouse and her adult great grandson. She is independent. Smoking Status: Never smoker Past Alcohol Use History: None Reported Past Drug Use History: None Reported - Past Family History Father Family Medical History: Liver Disease Additional Family Medical History / Comment(s): Father at the age of 52yrs from liver cirrhosis. He had ETOH abuse. Mother Family Medical History: No Reported History Additional Family Medical History / Comment(s): Mother was healthy and lived to be 93 yrs old. Son(s) Family Medical History: Coronary Artery Disease (CAD) (At the age of 58), Diabetes Mellitus Daughter(s) Family Medical History: Coronary Artery Disease (CAD) (Patient's daughter has heart condition and the other daughter has autism and lives in the senior living) Medications and Allergies Home Medications Medication Instructions Recorded Confirmed Type Acetaminophen Tab [Tylenol Tab] 325 mg PO Q6H PRN 04/19/17 04/19/17 History Aspirin [Adult Low Dose Aspirin EC] 81 mg PO DAILY 04/19/17 04/19/17 History Beclomethasone Dip 80 Mcg/Puff 1 puff INHALATION RT-DAILY PRN 04/19/17 04/19/17 History [Qvar 80 mcg] Clopidogrel [Plavix] 75 mg PO DAILY 04/19/17 04/19/17 History Losartan/Hydrochlorothiazide 1 tab PO DAILY 04/19/17 04/19/17 History [Hyzaar 100-12.5 Tablet] Vits A,C,E/Lutein/Minerals 1 tab PO DAILY 04/19/17 04/19/17 History [Ocuvite with Lutein Tablet] amLODIPine [Norvasc] 2.5 mg PO DAILY 04/19/17 04/19/17 History Allergies Allergy/AdvReac Type Severity Reaction Status Date / Time clarithromycin Allergy Unknown Verified 04/19/17 09:19 morphine Allergy Unknown Verified 04/19/17 09:19 omeprazole Allergy Unknown Verified 04/19/17 09:19 Penicillins Allergy Unknown Verified 04/19/17 09:19 pravastatin Allergy Unknown Verified 04/19/17 09:19 Sulfa (Sulfonamide Allergy Unknown Verified 04/19/17 09:19 Antibiotics) trimethoprim Allergy Unknown Verified 04/19/17 09:19 Surgical - Exam Vital Signs Temp Pulse Resp BP Pulse Ox 97.5 F L 70 16 177/78 100 04/19/17 08:07 04/19/17 08:07 04/19/17 08:07 04/19/17 08:07 04/19/17 08:07 - General well developed, well nourished, no distress, no pain - Eyes PERRL, normal ocular movement - ENT no hearing loss - Neck trachea midline - Respiratory Lungs sounds clear to auscultation. Respirations even, nonlabored. Currently on room air with oxygen saturation 97%. - Cardiovascular S1, S2 present. Regular rate and rhythm, normal sinus rhythm on telemetry. Palpable pulses bilaterally. No edema present. No variscocites noted. Right radial T-band still in place post cardiac catheterization. - Abdomen Abdomen: soft, non tender, bowel sounds - Genitourinary Deferred - Rectum Deferred - Integumentary no rash, no growths - Neurologic normal coordination, normal sensation - Musculoskeletal normal gait - Psychiatric oriented to time, oriented to person, oriented to place, speech is normal, memory intact Results - Labs 04/20/17 05:59 04/19/17 08:24 Abnormal Lab Results - Last 24 Hours (Table) 04/19/17 04/19/17 04/19/17 Range/Units 16:30 17:26 20:40 RBC (3.80-5.40) m/uL APTT 34.9 H (22.0-30.0) sec POC Glucose (mg/dL) 139 H 161 H (75-99) mg/dL Triglycerides (<150) mg/dL 04/20/17 04/20/17 04/20/17 Range/Units 00:41 05:59 05:59 RBC 3.63 L (3.80-5.40) m/uL APTT 50.1 H (22.0-30.0) sec POC Glucose (mg/dL) (75-99) mg/dL Triglycerides 187 H (<150) mg/dL 04/20/17 04/20/17 Range/Units 06:06 11:32 RBC (3.80-5.40) m/uL APTT (22.0-30.0) sec POC Glucose (mg/dL) 153 H 126 H (75-99) mg/dL Triglycerides (<150) mg/dL Diabetes panel 04/20/17 Range/Units 05:59 Triglycerides 187 H (<150) mg/dL HDL Cholesterol 50 (40-60) mg/dL - Imaging Chest x-ray: report reviewed, image reviewed EKG: image reviewed Additional studies: Cardiac catheterization films reviewed Assessment and Plan (1) Unstable angina pectoris Status: Acute (2) Coronary artery disease Status: Acute (3) History of placement of stent in LAD coronary artery Status: Acute (4) Diet-controlled diabetes mellitus Status: Acute (5) Hypertension Status: Acute (6) Asthma Status: Acute Plan: The patient was seen and examined. Chart/diagnostics were reviewed. The case was discussed in detail between Dr. Pike and Dr. Casper. It was felt at this time the patient would benefit from another stent placed to her LAD. If that stent fails we will consider her for surgical intervention. This plan was discussed in detail with the patient and she is agreeable. Recommend maximizing medical therapy for coronary artery disease. Thank you Dr. Pike for this consult. Please let us know if you have any questions. Time with Patient: Greater than 30
--- NOTE | 2017-04-20 16:36 | P.PN ---
Subjective 76 years old female patient of Dr. Trinidad and Dr. Harris with past medical history of coronary artery disease status post stent in 2008 in 2010, history of diet-controlled diabetes, hypertension, asthma presents at 5 AM this morning with chest pain which was in excruciating central in location radiating to the jaw neck and arm. Pain lasted half an hour but started back again at which time patient took nitroglycerin at home with minimal relief. Since the pain did not get any better she decided to come to the ED. Patient is seen by Dr. Harris who ordered a Lexiscan in the offices and was scheduled for cardiac cath in April of the Dr. Pike. Patient endorses sweating, dizziness, nausea during the episode but is feeling much better after starting on nitroglycerin drip. Patient denies any shortness of breath or chest pain. Labs including CBC , BMP was unremarkable. Glucose 131 with a creatinine of 0.68. Vision is seen by cardiology and will be undergoing cardiac catheterization tomorrow. 04/20: Patient has been seen by cardiology with recommendations for nitroglycerin drip and she was transferred from observation to the selective care unit. She is underwent heart catheterization today that revealed mild disease involving the large prominent right coronary artery, normal left main coronary artery, normal left circumflex coronary artery, critical in-stent restenosis involving the left anterior descending artery stent in the midportion with a long tubular lesion involving the diagonal as well. Consult was placed with cardiothoracic surgeon is recommending 17. Patient is currently on a nitroglycerin drip and she is denying any chest pain at this time. Patient did not have a reaction to atorvastatin and Benadryl was not necessary. Objective - Vital Signs Vital signs: Vital Signs Temp 97.3 F L 04/20/17 08:28 Pulse 65 04/20/17 08:28 Resp 20 04/20/17 08:28 BP 155/80 04/20/17 08:28 Pulse Ox 96 04/20/17 08:28 Intake & Output 04/19/17 04/20/17 04/20/17 18:59 06:59 18:59 Intake Total 326.447 Balance 326.447 Weight 53.1 kg 50.8 kg Intake: Intake, IV Titration 86.447 Amount Heparin Sodium,Porcine/ 86.447 D5w Pmx 25,000 unit In Dextrose/Water 1 500ml. bag @ 12 UNITS/KG/HR 12. 62 mls/hr IV .Q24H [facility] Rx #:[id number] Oral 240 Other: Voiding Method Toilet Toilet # Voids 1 - Exam General appearance: average body habitus, cooperative, no acute distress - EENT Eyes: EOMI, PERRLA, no ptosis, no scleral icterus, normal appearance Ears: bilateral: normal - Neck Neck: no lymphadenopathy, no normal ROM Carotids: bilateral: upstroke normal - Respiratory Respiratory: bilateral: CTA, negative: diminished, dullness, rales, rhonchi, wheezing - Cardiovascular Rhythm: regular Heart sounds: normal: S1, S2 Abnormal Heart Sounds: no systolic murmur, no diastolic murmur ankle Peripheral Edema: bilateral: None - Gastrointestinal General gastrointestinal: no hepatomegaly, normal bowel sounds, soft, no tenderness - Integumentary Integumentary: no calor, no cyanotic, no decreased turgor, normal - Neurologic Neurologic: CNII-XII intact - Musculoskeletal Musculoskeletal: gait normal, strength equal bilaterally - Psychiatric Psychiatric: A&O x's 3, appropriate affect - Labs CBC & Chem 7: 04/20/17 05:59 04/19/17 08:24 Labs: Abnormal Lab Results - Last 24 Hours (Table) 04/19/17 04/19/17 04/19/17 Range/Units 08:24 16:30 17:26 RBC (3.80-5.40) m/uL APTT 34.9 H (22.0-30.0) sec Glucose 131 H (74-99) mg/dL POC Glucose (mg/dL) 139 H (75-99) mg/dL Total Bilirubin 1.6 H (0.2-1.3) mg/dL Triglycerides (<150) mg/dL 04/19/17 04/20/17 04/20/17 Range/Units 20:40 00:41 05:59 RBC 3.63 L (3.80-5.40) m/uL APTT 50.1 H (22.0-30.0) sec Glucose (74-99) mg/dL POC Glucose (mg/dL) 161 H (75-99) mg/dL Total Bilirubin (0.2-1.3) mg/dL Triglycerides (<150) mg/dL 04/20/17 04/20/17 Range/Units 05:59 06:06 RBC (3.80-5.40) m/uL APTT (22.0-30.0) sec Glucose (74-99) mg/dL POC Glucose (mg/dL) 153 H (75-99) mg/dL Total Bilirubin (0.2-1.3) mg/dL Triglycerides 187 H (<150) mg/dL Assessment and Plan Plan: #1 Cardiac chest pain- patient's significant history of coronary artery disease in the past with stenting associated with typical symptoms, symptoms are likely secondary to coronary artery disease - Continue aspirin, Plavix - Coronary cardiac catheterization as above - Nothing by mouth after midnight - Patient is ALLERGIC to pravastatin with hives, 15 years ago - Patient received atorvastatin this evening, will be monitored for anaphylaxis. Benadryl ordered - Continue nitroglycerin drip - Tylenol when necessary for headache #2 asthma- continue DuoNeb when necessary shortness of breath #3 hypertension- hold hydrochlorothiazide, continue amlodipine and losartan #4 diet-controlled diabetes- insulin sliding scale #5 DVT prophylaxis- mechanical prophylaxis with HARSH hose #6 disposition- patient is undergoing cardiac catheterization and will be inpatient for the next 2 days #7 CODE STATUS full code Discharge plan: Return home Impression and plan of care have been directed as dictated by the signing physician. Kamala Owen nurse practitioner acting as scribe for signing physician.
[2017-04-20] MEDS: HEPARIN SODIUM,PORCINE/D5W PMX 25,000 UNIT in DEXTROSE/WATER 1 500ML.BAG IV SCH ×2 (17:00→22:14)
[2017-04-20 17:03] LABS: Glucose,Whole Blood 126 mg/dL (75-99)
[2017-04-20 20:56] LABS: Glucose,Whole Blood 152 mg/dL (75-99)
[2017-04-20] MEDS: HYDROcodone/APAP 7.5-325MG 1 EACH TAB PO PRN (22:14)
[2017-04-21] MEDS: HEPARIN SODIUM,PORCINE 5,000 UNIT/ML 1 ML VIAL IV PRN (02:16)
[2017-04-21] MEDS: HYDROcodone/APAP 7.5-325MG 1 EACH TAB PO PRN (05:14)
[2017-04-21 06:04] LABS: Glucose,Whole Blood 166 mg/dL (75-99)
[2017-04-21] MEDS: ASPIRIN 325 MG TAB PO SCH (06:22)
[2017-04-21] MEDS: CLOPIDOGREL 75 MG TAB PO SCH (06:22)
[2017-04-21] MEDS: LOSARTAN 50 MG TAB PO SCH (06:22)
[2017-04-21] MEDS: ATORVASTATIN 40 MG TAB PO SCH (06:22)
[2017-04-21] MEDS: VIT A,C & E-LUTEIN-MINERALS 1 EACH TAB PO SCH (06:22)
[2017-04-21] MEDS: NITROGLYCERIN-D5W PMX 50 MG in DEXTROSE/WATER 1 250ML.BAG IV SCH (06:23)
[2017-04-21 06:49] LABS: Mean Platelet Volume 7.7
[2017-04-21] MEDS ORDERED: ONDANSETRON 4 MG/2 ML VIAL IVP PRN (09:13)
[2017-04-21] MEDS: ACETAMINOPHEN TAB 325 MG TAB PO PRN ×2 (10:45→20:43)
--- NOTE | 2017-04-21 10:57 | CDI ---
In responding to this query, please exercise your independent professional judgment. The [facility] Coding Staff and Clinical Documentation Specialists appreciate your assistance in clarifying documentation, maintaining compliance with coding guidelines, accurately documenting patients condition and capturing severity of illness. The fact that a question is asked does not imply that any particular answer is desired or expected. Communication forms are a method of clarifying documentation and are not made part of the Legal Health Record. Thank you in advance for your clarification. Last Revision, September 2015 Antonieta Bill [address] [facility] [place] [address] Documentation Clarification Form Date: 04/21/2017 10:32:00 AM From: Yany Parker Admit Date: 04/20/2017 4:31:00 PM Patient Name: Eloy Clark Visit Number: [id number] Discharge Date: Dr. Doreen Lucas/Kamala Owen [employer] SERVICES PROFESSIONAL-C Asthma is documented in the H&P and progress notes. Patient history/risk factors: Asthma, Coronary artery disease, Hypertension Clinical Indicators: Present with complaints of chest discomfort without radiation. No shortness of breath. She is positive for recent abnormal stress test. Lungs sounds: Normal bilaterally Radiology: Vital Signs: 155/80 65 20 97.3 96 % RA Treatment: Pulmicort PRN for shortness of breath Monitor O2 Sat's In your professional opinion, can you please further specify the following, if known? With Acute Exacerbation Without Acute Exacerbation Other, please specify Unable to determine Severity Mild intermittent Mild persistent Moderate persistent Severe persistent Other, please specify Unable to determine Form or Type Cough variant Childhood Exercise induced bronchospasm Extrinsic allergic Idiosyncratic Intrinsic nonallergic Late-onset Mixed Other, please specify Unable to determine Please document in your progress notes and discharge summary in order to capture severity of illness and risk of mortality. Include clinical findings that support your diagnosis. FYI: Press F11 to launch patient chart. [place]
[2017-04-21 11:34] LABS: Glucose,Whole Blood 157 mg/dL (75-99)
[2017-04-21] MEDS ORDERED: MIDAZOLAM 2 MG/2 ML VIAL ONE (11:42)
[2017-04-21] MEDS ORDERED: LIDOCAINE 2% INJ 20 MG/ML (20 ML MDV) ONE (11:42)
[2017-04-21] MEDS ORDERED: IV FLUID CONTINUATION 200 ML IV ONE (11:50)
[2017-04-21] MEDS ORDERED: MIDAZOLAM 2 MG/2 ML VIAL IVP ONE (12:00)
[2017-04-21] MEDS ORDERED: LIDOCAINE 2% INJ 20 MG/ML SQ ONE (12:01)
[2017-04-21] MEDS ORDERED: BIVALIRUDIN BOLUS 250 MG/50 ML IV ONE (12:02)
[2017-04-21] MEDS ORDERED: BIVALIRUDIN 250 MG in SODIUM CHLORIDE 0.9% 50 ML IV ONE (12:03)
[2017-04-21] MEDS ORDERED: fentaNYL (PF) 50 MCG/ML 2 ML AMP ONE (12:12)
[2017-04-21] MEDS: fentaNYL (PF) 50 MCG/ML 2 ML AMP IVP ONE ×2 (12:13→12:21)
[2017-04-21] MEDS ORDERED: METOPROLOL TARTRATE 5 MG/5 ML VIAL IVP ONE ×2 (12:17)
[2017-04-21] MEDS ORDERED: hydrALAZINE HCL 20 MG/ML 1 ML VIAL ONE (12:20)
[2017-04-21] MEDS ORDERED: hydrALAZINE HCL 20 MG/ML 1 ML VIAL IVP ONE (12:21)
[2017-04-21] MEDS ORDERED: SODIUM CHLORIDE 0.9% 1,000 ML IV ONE (12:24)
[2017-04-21] MEDS ORDERED: CLOPIDOGREL 75 MG TAB ONE (12:26)
[2017-04-21] MEDS ORDERED: NITROGLYCERIN 1000MCG/10ML SYRINGE INTRACORON ONE (12:26)
[2017-04-21] MEDS ORDERED: CLOPIDOGREL 75 MG TAB PO ONE (12:47)
[2017-04-21] MEDS ORDERED: IOHEXOL 350 MG/ML 125ML BOTTLE INJ ONE (12:48)
[2017-04-21] MEDS ORDERED: ATROPINE SULFATE 0.1 MG/ML 10ML SYRINGE IV PRN (12:52)
[2017-04-21] MEDS ORDERED: NITROGLYCERIN SL TABS 0.4 MG TAB SUBLINGUAL PRN (12:52)
[2017-04-21] MEDS ORDERED: MAG HYDROX/AL HYDROX/SIMETH 30 ML CUP PO PRN (12:52)
[2017-04-21] MEDS ORDERED: ZOLPIDEM 5 MG TAB PO PRN (12:52)
[2017-04-21] MEDS ORDERED: RX INFO: IV CONTRAST WAS GIVEN 1 EACH MISC MISCELLANE PRN (12:52)
[2017-04-21] MEDS ORDERED: SODIUM CHLORIDE 0.9% 1,000 ML IV SCH (13:00)
--- NOTE | 2017-04-21 13:56 | PTCA ---
PERCUTANEOUSTRANS CORORONARY ANGIOGRAPHY DATE OF SERVICE: 04/21/2017 PERFORMING PHYSICIAN: Luis Pike MD, fur scraper. PROCEDURE PERFORMED: 1. Successful stenting of the mid LAD using 3.5 x 38 mm Xience stent with good angiographic results. 2. Successful stenting of the proximal LAD using 3.5 x 12 mm Xience АЛЕКСАНДР with good angiographic results. INDICATION: This is a pleasant 76-year-old female patient who sees Dr. Harris as an outpatient who was experiencing chest discomfort and underwent myocardial perfusion imaging, which showed ischemia. She presented to the hospital with chest discomfort. She was scheduled to have a heart catheterization as an outpatient. In view of that, she underwent a heart catheterization yesterday which showed critical in-stent restenosis of the mid LAD stent. She referred for open heart surgery, but the patient was seen by a surgeon who felt that the patient maybe will benefit more from percutaneous coronary intervention. APPROACH: Right common femoral artery. COMPLICATION: None. LEVEL OF SEDATION: Moderate with sedation length of 47 minutes. PROCEDURE DESCRIPTION: After obtaining an informed consent, the patient was brought to the cardiac cardiac cath lab technologist. The right common femoral artery was cannulated using micropuncture technique, the micropuncture wire passed easily then I placed a 6-Congolese sheath in the right common femoral artery. Subsequently I did start anticoagulation using Angiomax. After that, I did engage the left main using an XB3.5 LAD guide. I attempted crossing the lesion of the LAD using a whisper wire, but the wire would not cross. Finally I was able to cross it using a ChoICE PT wire with the backup support of 2.0 x 12 mm balloon. After that, I did balloon angioplasty of the stented segment in the mid LAD using initially 2.0 x 12 mm balloon and after that using 3.0 AngioSculpt balloon. After that, I deployed 3.5 x 38 mm Xience АЛЕКСАНДР in the mid LAD and 3.5 x 12 mm Xience АЛЕКСАНДР in the proximal LAD. The following angiogram showed excellent angiographic results without perforation and without dissection. After deploying the 2 stents, I postdilated the stent using 3.5 x 27 mm noncompliant balloon. The final angiographic results came into be excellent and no complications were reported. POSTPROCEDURE MANAGEMENT: 1. Dual anti-platelet therapy. 2. Risk factor modifications. 3. Follow up with the patient. MMODL / IJN: [id number] /
--- NOTE | 2017-04-21 15:22 | P.PN ---
Subjective 76 years old female patient of Dr. Trinidad and Dr. Harris with past medical history of coronary artery disease status post stent in 2008 in 2010, history of diet-controlled diabetes, hypertension, asthma presents at 5 AM this morning with chest pain which was in excruciating central in location radiating to the jaw neck and arm. Pain lasted half an hour but started back again at which time patient took nitroglycerin at home with minimal relief. Since the pain did not get any better she decided to come to the ED. Patient is seen by Dr. Harris who ordered a Lexiscan in the offices and was scheduled for cardiac cath in April of the Dr. Pike. Patient endorses sweating, dizziness, nausea during the episode but is feeling much better after starting on nitroglycerin drip. Patient denies any shortness of breath or chest pain. Labs including CBC , BMP was unremarkable. Glucose 131 with a creatinine of 0.68. Vision is seen by cardiology and will be undergoing cardiac catheterization tomorrow. 04/20: Patient has been seen by cardiology with recommendations for nitroglycerin drip and she was transferred from observation to the selective care unit. She is underwent heart catheterization today that revealed mild disease involving the large prominent right coronary artery, normal left main coronary artery, normal left circumflex coronary artery, critical in-stent restenosis involving the left anterior descending artery stent in the midportion with a long tubular lesion involving the diagonal as well. Consult was placed with cardiothoracic surgeon is recommending 17. Patient is currently on a nitroglycerin drip and she is denying any chest pain at this time. Patient did not have a reaction to atorvastatin and Benadryl was not necessary. 04/21: Dr. Pike has performed stenting of the mid LAD and proximal LAD with plan to monitor patient overnight. Objective - Vital Signs Vital signs: Vital Signs Temp 97.0 F L 04/21/17 11:33 Pulse 76 04/21/17 11:34 Resp 16 04/21/17 11:34 BP 159/91 04/21/17 11:33 Pulse Ox 96 04/21/17 11:33 Intake & Output 04/20/17 04/21/17 04/21/17 18:59 06:59 18:59 Intake Total 890 926.674 180 Output Total 1000 Balance -110 926.674 180 Weight 59.1 kg Intake: IV 50 180 Intake, IV Titration 600 926.674 Amount Heparin Sodium,Porcine/ 477.199 D5w Pmx 25,000 unit In Dextrose/Water 1 500ml. bag @ 12 UNITS/KG/HR 12. 62 mls/hr IV .Q24H JOS Rx #:[id number] Nitroglycerin-D5w Pmx 50 41.475 mg In Dextrose/Water 1 250ml.bag @ 5 MCG/MIN 1.5 mls/hr IV .Q24H JOS Rx#: [id number] Sodium Chloride 0.9% 1, 600 000 ml @ 100 mls/hr IV . Q10H JOS Rx#:[id number] Sodium Chloride 0.9% 1, 408 000 ml In Empty Bag 1 bag @ 1 ML/KG/HR 50.8 mls/hr IV .[id number] ONE Rx#: [id number] Oral 240 Output: Urine 1000 Other: Voiding Method Toilet Toilet # Voids 2 1 - Exam General appearance: average body habitus, cooperative, no acute distress - EENT Eyes: EOMI, PERRLA, no ptosis, no scleral icterus, normal appearance Ears: bilateral: normal - Neck Neck: no lymphadenopathy, no normal ROM Carotids: bilateral: upstroke normal - Respiratory Respiratory: bilateral: CTA, negative: diminished, dullness, rales, rhonchi, wheezing - Cardiovascular Rhythm: regular Heart sounds: normal: S1, S2 Abnormal Heart Sounds: no systolic murmur, no diastolic murmur ankle Peripheral Edema: bilateral: None - Gastrointestinal General gastrointestinal: no hepatomegaly, normal bowel sounds, soft, no tenderness - Integumentary Integumentary: no calor, no cyanotic, no decreased turgor, normal - Neurologic Neurologic: CNII-XII intact - Musculoskeletal Musculoskeletal: gait normal, strength equal bilaterally - Psychiatric Psychiatric: A&O x's 3, appropriate affect - Labs CBC & Chem 7: 04/21/17 05:47 04/19/17 08:24 Labs: Abnormal Lab Results - Last 24 Hours (Table) 04/20/17 04/20/17 04/21/17 Range/Units 16:58 20:55 01:20 APTT 34.8 H (22.0-30.0) sec POC Glucose (mg/dL) 126 H 152 H (75-99) mg/dL 04/21/17 04/21/17 Range/Units 06:01 11:27 APTT (22.0-30.0) sec POC Glucose (mg/dL) 166 H 157 H (75-99) mg/dL Assessment and Plan Plan: #1 Cardiac chest pain- patient's significant history of coronary artery disease in the past with stenting associated with typical symptoms, symptoms are likely secondary to coronary artery disease status post successful stenting of the mid LAD and proximal LAD - Continue aspirin, Plavix - Coronary cardiac catheterization as above - Patient is ALLERGIC to pravastatin with hives, 15 years ago - Patient received atorvastatin this evening, will be monitored for anaphylaxis. Benadryl ordered - Tylenol when necessary for headache #2 asthma, mild intermittent- continue DuoNeb when necessary shortness of breath #3 hypertension- hold hydrochlorothiazide, continue amlodipine and losartan #4 diet-controlled diabetes- insulin sliding scale #5 DVT prophylaxis- mechanical prophylaxis with HARSH hose #6 disposition- patient is undergoing cardiac catheterization and will be inpatient for the next 2 days #7 CODE STATUS full code Discharge plan: Return home Impression and plan of care have been directed as dictated by the signing physician. Kamala Owen nurse practitioner acting as scribe for signing physician.
[2017-04-21 17:00] LABS: Glucose,Whole Blood 160 mg/dL (75-99)
[2017-04-21 20:41] LABS: Glucose,Whole Blood 167 mg/dL (75-99)
[2017-04-22 05:47] LABS: Glucose,Whole Blood 130 mg/dL (75-99)
[2017-04-22 06:26] LABS: Mean Platelet Volume 7.3
[2017-04-22 06:39] LABS: Non-African American GFR(MDRD) >60 (>60 ml/min/1.73 sqM)
[2017-04-22 08:54] VITALS: RESP 16; TEMP 97.7
[2017-04-22 09:00] LABS: Basophils % (A) 0 %; CH 32.4; CHCM 34.3; Eosinophils # (A) 0.1 k/uL (0-0.7); Eosinophils % (A) 0 %; HDW 2.49; HGB 13.3 gm/dL (11.4-16.0); Luc # (Auto) 0.24; Luc % (Auto) 2; Lymphocytes # (A) 2.8 k/uL (1.0-4.8); Lymphocytes % (A) 21 %; MCH 32.4 pg (25.0-35.0); MCHC 34.2 g/dL (31.0-37.0); MCV 94.8 fL (80.0-100.0); Mean Platelet Volume 7.5; Monocytes # (A) 0.9 k/uL (0-1.0); Monocytes % (A) 7 %; Neutrophils % (A) 70 %; RBC 4.12 m/uL (3.80-5.40); RDW 12.6 % (11.5-15.5); WBC 12.9 k/uL (3.8-10.6); WBC (Perox) 13.37
[2017-04-22] MEDS: ATORVASTATIN 40 MG TAB PO SCH (09:13)
[2017-04-22] MEDS: LOSARTAN 50 MG TAB PO SCH (09:13)
[2017-04-22] MEDS: VIT A,C & E-LUTEIN-MINERALS 1 EACH TAB PO SCH (09:13)
[2017-04-22] MEDS: CLOPIDOGREL 75 MG TAB PO SCH (09:13)
[2017-04-22] MEDS: ASPIRIN 325 MG TAB PO SCH (09:13)
[2017-04-22 11:30] VITALS: BP 125/81; PULSE 90
--- NOTE | 2017-04-22 12:32 | P.DS ---
Providers Date of admission: 04/20/17 16:31 Expected date of discharge: 04/22/17 Attending physician: Doreen Lucas MD Consults: 04/19/17 10:56 Consult Physician Urgent Consulting Provider: Domo Harris Consult Reason/Comments: ua, abnormal stress Do you want consulting provider notified?: Yes 04/20/17 11:11 Consult Physician Routine Consulting Provider: Sathya Pedraza Consult Reason/Comments: eval. for CABG Do you want consulting provider notified?: Already Contacted 04/21/17 12:52 Consult Physician Routine Consulting Provider: [facility] Consult Reason/Comments: Post Interventional patient Do you want consulting provider notified?: Already Contacted Primary care physician: Pablo Trinidad [facility] Course: 76 years old female patient of Dr. Trinidad and Dr. Harris with past medical history of coronary artery disease status post stent in 2008 in 2010, history of diet-controlled diabetes, hypertension, asthma presents at 5 AM this morning with chest pain which was in excruciating central in location radiating to the jaw neck and arm. Pain lasted half an hour but started back again at which time patient took nitroglycerin at home with minimal relief. Since the pain did not get any better she decided to come to the ED. Patient is seen by Dr. Harris who ordered a Lexiscan in the offices and was scheduled for cardiac cath in April of the Dr. Pike. Patient endorses sweating, dizziness, nausea during the episode but is feeling much better after starting on nitroglycerin drip. Patient denies any shortness of breath or chest pain. Labs including CBC , BMP was unremarkable. Glucose 131 with a creatinine of 0.68. Vision is seen by cardiology and will be undergoing cardiac catheterization tomorrow. 04/20: Patient has been seen by cardiology with recommendations for nitroglycerin drip and she was transferred from observation to the selective care unit. She is underwent heart catheterization today that revealed mild disease involving the large prominent right coronary artery, normal left main coronary artery, normal left circumflex coronary artery, critical in-stent restenosis involving the left anterior descending artery stent in the midportion with a long tubular lesion involving the diagonal as well. Consult was placed with cardiothoracic surgeon is recommending 17. Patient is currently on a nitroglycerin drip and she is denying any chest pain at this time. Patient did not have a reaction to atorvastatin and Benadryl was not necessary. 04/21: Dr. Pike has performed stenting of the mid LAD and proximal LAD with plan to monitor patient overnight. 04/22: Patient was seen today. She is noted to be resting comfortably in bed. She denies any chest pain, shortness of breath, palpitations, dizziness, nausea vomiting. She underwent stenting of the mid LAD and proximal LAD with Dr. Pike yesterday. Right groin shows no hematoma no bleeding. Patient will be discharged home today with follow-up as outpatient. Discharge diagnoses #1 Chest pain status post successful stenting of the mid LAD and proximal LAD #2 asthma #3 hypertension #4 diabetes type 2 on diet control The above impression and plan of care have been discussed and directed by signing physician. Terri Camacho nurse practitioner acting as scribe for signing physician. Patient Condition at Discharge: Good Plan - Discharge Summary New Discharge Prescriptions: New Aspirin 325 mg PO DAILY tab Atorvastatin [Lipitor] 40 mg PO DAILY #30 tab Losartan [Cozaar] 50 mg PO DAILY #30 tab Nitroglycerin Sl Tabs [Nitrostat] 0.4 mg SUBLINGUAL Q5M PRN #30 tab PRN Reason: Chest Pain Continue amLODIPine [Norvasc] 2.5 mg PO DAILY Vits A,C,E/Lutein/Minerals [Ocuvite with Lutein Tablet] 1 tab PO DAILY Beclomethasone Dip 80 Mcg/Puff [Qvar 80 mcg] 1 puff INHALATION RT-DAILY PRN PRN Reason: Shortness Of Breath Aspirin [Adult Low Dose Aspirin EC] 81 mg PO DAILY Acetaminophen Tab [Tylenol] 325 mg PO Q6H PRN PRN Reason: Pain Clopidogrel [Plavix] 75 mg PO DAILY Discontinued Losartan/Hydrochlorothiazide [Hyzaar 100-12.5 Tablet] 1 tab PO DAILY Discharge Medication List Acetaminophen Tab [Tylenol] 325 mg PO Q6H PRN 04/19/17 [History] Aspirin [Adult Low Dose Aspirin EC] 81 mg PO DAILY 04/19/17 [History] Beclomethasone Dip 80 Mcg/Puff [Qvar 80 mcg] 1 puff INHALATION RT-DAILY PRN [History] Clopidogrel [Plavix] 75 mg PO DAILY 04/19/17 [History] Vits A,C,E/Lutein/Minerals [Ocuvite with Lutein Tablet] 1 tab PO DAILY 04/19/17 [History] amLODIPine [Norvasc] 2.5 mg PO DAILY 04/19/17 [History] Aspirin 325 mg PO DAILY tab 04/22/17 [Rx] Atorvastatin [Lipitor] 40 mg PO DAILY #30 tab 04/22/17 [Rx] Losartan [Cozaar] 50 mg PO DAILY #30 tab 04/22/17 [Rx] Nitroglycerin Sl Tabs [Nitrostat] 0.4 mg SUBLINGUAL Q5M PRN #30 tab 04/22/17 [Rx ] Follow up Appointment(s)/Referral(s): Domo Harris MD [STAFF PHYSICIAN] - 1 Week (pt to make appointment monday office is closed ) Pablo Trinidad MD [Primary Care Provider] - 1-2 days (pt to make appointment monday, office is closed ) Patient Instructions/Handouts: Heart Catheterization (DC) Discharge Disposition: HOME SELF-CARE
[2017-04-22 12:43] LABS: Glucose,Whole Blood 131 mg/dL (75-99)
--- NOTE | 2017-04-22 12:43 | P.PN ---
Subjective Principal diagnosis: unstable angina This a pleasant 72-year-old female patient who follows with Dr. Oconnor in the office. Had positive Cardiolite and was initially scheduled to undergo cardiac catheterization by Dr. Taylor on April 28. Tentatively emergency department with complaints of chest ongoing chest discomfort. Underwent cardiac catheterization that showed critical in-stent restenosis of the LAD. CV surgery was consulted for possible open-heart and it was felt that the patient would benefit more from PCI. She was taken for subsequent catheterization yesterday with successful stenting of the mid LAD and proximal LAD. Upon examination this morning, patient is resting comfortably in bed. She has been up ambulating and she has no further complaints of chest discomfort. Objective - Vital Signs Vital signs: Vital Signs Temp 97.7 F 04/22/17 08:00 Pulse 90 04/22/17 11:24 Resp 16 04/22/17 11:24 BP 125/81 04/22/17 11:24 Pulse Ox 97 04/22/17 11:24 Intake & Output 04/21/17 04/22/17 04/22/17 18:59 06:59 18:59 Intake Total 310.84 0 436 Output Total 500 Balance -189.16 0 436 Weight 50.9 kg Intake: IV 310.84 Oral 0 436 Output: Urine 500 Other: Voiding Method Toilet # Voids 1 2 - Exam PHYSICAL EXAMINATION: HEENT: Head is atraumatic, normocephalic. Pupils equal, round. Neck is supple. There is no elevated jugular venous pressure. HEART EXAMINATION: Heart sounds regular, S1 and S2 normal. No murmur or gallop heard. CHEST EXAMINATION: Lungs are clear to auscultation and precussion. No chest wall tenderness is noted on palpation or with deep breathing. ABDOMEN: Soft, nontender. Bowel sounds are heard. No organomegaly noted. EXTREMITIES: 2+ peripheral pulses with no evidence of peripheral edema and no calf tenderness noted. Right femoral artery puncture site soft without ecchymosis or hematoma.. NEUROLOGIC patient is awake, alert and oriented x3. . - Labs CBC & Chem 7: 04/22/17 05:52 04/22/17 05:52 Labs: Abnormal Lab Results - Last 24 Hours (Table) 04/21/17 04/21/17 04/22/17 Range/Units 16:44 20:39 05:41 WBC (3.8-10.6) k/uL Neutrophils # (1.3-7.7) k/uL POC Glucose (mg/dL) 160 H 167 H 130 H (75-99) mg/dL 04/22/17 Range/Units 05:52 WBC 12.9 H (3.8-10.6) k/uL Neutrophils # 9.0 H (1.3-7.7) k/uL POC Glucose (mg/dL) (75-99) mg/dL Assessment and Plan Plan: Assessment and plan #1 unstable angina #2 coronary artery disease with critical in-stent restenosis of the LAD, status post stenting to the mid and proximal LAD #3 hypertension #4 right bundle branch block From cardiology's perspective, patient is stable for discharge home. Continue aspirin, atorvastatin, Plavix, losartan. She'll follow-up in the office with Dr. Harris in about a week. KNITTING INSPECTOR note has been reviewed, I agree with a documented findings and plan of care. Patient was seen and examined.
== END 2017-04-22 14:28 | disposition home or self-care (01) | DRG 247 ==
LOC: EC 08:05 → 3OBS 10:57 → 6SEL 16:22 → OBSVTOIN 04-20 16:31
PROVIDERS: ADMIT Internal Medicine; ATTEND Internal Medicine
PROC: 027135Z Dilation of Coronary Artery, Two Arteries with Two Drug-eluting Intraluminal Devices, Percutaneous Approach (ICD-10-PCS; 2017-04-20)
PROC: B2011ZZ Plain Radiography of Multiple Coronary Arteries using Low Osmolar Contrast (ICD-10-PCS; 2017-04-20)
PROC: 4A023N7 Measurement of Cardiac Sampling and Pressure, Left Heart, Percutaneous Approach (ICD-10-PCS; principal; 2017-04-20 10:18)
DX: I25.110 Atherosclerotic heart disease of native coronary artery with unstable angina pectoris (principal); T82.855A Stenosis of coronary artery stent, initial encounter; E11.9 Type 2 diabetes mellitus without complications; I45.10 Unspecified right bundle-branch block; I10 Essential (primary) hypertension; J45.20 Mild intermittent asthma, uncomplicated; R42 Dizziness and giddiness; R11.2 Nausea with vomiting, unspecified; Y83.1 Surgical operation with implant of artificial internal device as the cause of abnormal reaction of the patient, or of later complication, without mention of misadventure at the time of the procedure; F41.9 Anxiety disorder, unspecified; Z96.1 Presence of intraocular lens; Z79.82 Long term (current) use of aspirin; Z79.02 Long term (current) use of antithrombotics/antiplatelets; Z88.1 Allergy status to other antibiotic agents; Z88.0 Allergy status to penicillin; Z88.2 Allergy status to sulfonamides; Z88.8 Allergy status to other drugs, medicaments and biological substances; Z88.6 Allergy status to analgesic agent; Z83.3 Family history of diabetes mellitus; Z82.49 Family history of ischemic heart disease and other diseases of the circulatory system; Z81.1 Family history of alcohol abuse and dependence; Z98.41 Cataract extraction status, right eye; Z98.42 Cataract extraction status, left eye; Z90.710 Acquired absence of both cervix and uterus; Z90.49 Acquired absence of other specified parts of digestive tract; Z87.01 Personal history of pneumonia (recurrent); Z87.440 Personal history of urinary (tract) infections; Z98.51 Tubal ligation status
CPT/HCPCS: 36415; 71020; 80053; 80061; 82550; 82553; 82565; 83735; 84484; 85025; 85049; 85610; 85730; 93005; 93306; 93458; 94760; 96365; 96366; 96374; 96376; 99291

== ENCOUNTER → 2017-12-12 | Outpatient (CLI) | payer MEDICARE ==
--- NOTE | 2017-12-12 11:10 | CT ---
EXAMINATION TYPE: CT abdomen pelvis wo con DATE OF EXAM: 12/12/2017 COMPARISON: NONE HISTORY: 77-year-old female Calculus of Kidney, pain, history of hydronephrosis. CT DLP: 580 mGycm. Automated exposure control for dose reduction was used. TECHNIQUE: Contiguous axial scanning of the abdomen and pelvis without IV contrast. Coronal and sagit tevin reconstructions performed. FINDINGS: Heart normal size without pericardial effusion. Coronary vessel calcifications are present and are a marker for coronary artery disease. Strandy atelectasis in the lower lungs without pleural effusion. Lower descending thoracic aorta is ectatic at 2.7 cm. Mild to moderate atherosclerotic calcification within the abdominal aorta and iliac arteries without aneurysm. Small fatty umbilical hernia. Tiny subcentimeter hypodensity posterior right hepatic lobe too small for accurate CT characterizatio n, likely tiny cyst. Also, a 1.1 cm cyst along the right side of the gallbladder fossa. Otherwise, noncontrast appearance of the adrenal glands, spleen, and pancreas shows no gross abnormal ity. There is mild dilatation of the bile duct at 7 mm, within normal limits postcholecystectomy status. Nonobstructive 4 mm left midpole renal calculus. There are two nonobstructive 4 mm left renal calculi. Bilateral extrarenal pelves. No dilated small bowel, free fluid, or free air. No mesenteric or retroperitoneal lymphadenopathy. There is sigmoid diverticulosis and redundant sigmoid colon. No pericolonic inflammatory change. Bladder incompletely distended. Mild circumferential bladder wall thickening. Uterus surgically absen t. Right ovary visualized. Left ovary not clearly delineated from adjacent bowel loops. No abnormal f luid collection the pelvis. Bones: Degenerative changes at the lumbosacral junction with a couple disc herniations in the lower l umbar spine. No osseous destructive process. IMPRESSION: 1. Bilateral nephrolithiasis with a couple 4 mm calculi on the left and one on the right. 2. Sigmoid diverticulosis. 3. Mild circumferential bladder wall thickening could relate to under distention or cystitis. Clinic ally correlate.
== END | disposition home or self-care (01) ==
LOC: RADCTMAIN 09:45
PROVIDERS: ATTEND Urology
DX: N20.0 Calculus of kidney (principal); K57.30 Diverticulosis of large intestine without perforation or abscess without bleeding; N32.89 Other specified disorders of bladder
CPT/HCPCS: 74176

== ENCOUNTER → 2018-06-27 | Outpatient (CLI) | payer MEDICARE ==
--- NOTE | 2018-06-27 15:59 | US ---
EXAMINATION TYPE: US kidneys/renal and bladder DATE OF EXAM: 06/27/2018 COMPARISON: CT CLINICAL HISTORY: N20.0 Calculus of kidney. H/O renal stones, on/off ABD pain EXAM MEASUREMENTS: Right Kidney: 9.9 x 4.9 x 4.2 cm Left Kidney: 10.5 x 5.3 x 4.1 cm Right Kidney: Probable renal stone upper pole= 6mm/ No evidence of hydro Left Kidney: Dilated renal pelvis= 1.1 cm Bladder: wnl Bilateral Jets seen: Yes There is no evidence for hydronephrosis at this point in time. No nephrolithiasis is seen. No jose alberto s are identified. The urinary bladder is anechoic. Bilateral ureteral jets are seen. IMPRESSION: 1. Nonobstructing right-sided nephrolithiasis. 2. Mild hydronephrosis left kidney.
== END | disposition home or self-care (01) ==
LOC: RADUSWWP 08:41
PROVIDERS: ATTEND Urology
DX: N20.0 Calculus of kidney (principal); N13.30 Unspecified hydronephrosis
CPT/HCPCS: 76770

== ENCOUNTER → 2018-12-15 | Outpatient (CLI) | payer MEDICARE ==
--- NOTE | 2018-12-15 20:15 | MR ---
MR brain without contrast HISTORY: Left-sided headaches, dizziness, visual disturbance Multiplanar multisequence imaging through the brain No comparisons There is no restricted diffusion. Corpus callosum, pituitary, cervical medullary junction, cerebellop ontine angles are normal. Cortical atrophy is likely age-related. Periventricular confluent and scatt ered hyperintensities are present on inversion recovery and T2-weighted sequences, there are likely 5 0 lesions present. No hemorrhage or hydrocephalus. There are normal vascular flow voids. Orbits show symmetric appearance. Paranasal sinuses are well aerated. Mastoid air cells are unremarkable. IMPRESSION: Nonspecific white matter demyelination may be due to chronic small vessel ischemia, there is age-related atrophy.
== END | disposition home or self-care (01) ==
LOC: RADMRIMAIN 11:17
PROVIDERS: ATTEND Family Medicine
DX: G37.9 Demyelinating disease of central nervous system, unspecified (principal); G31.1 Senile degeneration of brain, not elsewhere classified
CPT/HCPCS: 70551

== ENCOUNTER 2019-06-24 12:40 | Observation (INO) | payer MEDICARE ==
[2019-06-24] MEDS ORDERED: INFLUENZA VACCINE (6 MOS+) 60 MCG/0.5 ML SYRINGE IM ONE (15:43)
[2019-06-24] MEDS ORDERED: FLUTICASONE 110 MCG INHALER INHALATION PRN (16:02)
[2019-06-24] MEDS ORDERED: NITROGLYCERIN SL TABS 0.4 MG TAB SUBLINGUAL PRN (16:02)
[2019-06-24 16:38] LABS: Glucose,Whole Blood 145 mg/dL (75-99)
[2019-06-24] MEDS ORDERED: LOSARTAN 50 MG TAB PO SCH (19:30)
[2019-06-24 20:40] LABS: Glucose,Whole Blood 193 mg/dL (75-99)
[2019-06-25 06:36] LABS: Glucose,Whole Blood 169 mg/dL (75-99)
[2019-06-25 07:24] LABS: Calcium 9.4 mg/dL (8.4-10.2); Potassium 3.6 mmol/L (3.5-5.1)
[2019-06-25] MEDS ORDERED: NITROGLYCERIN SL TABS 0.4 MG TAB SUBLINGUAL PRN (08:19)
[2019-06-25] MEDS ORDERED: ATORVASTATIN 80 MG TAB PO STA (08:19)
[2019-06-25] MEDS ORDERED: ALPRAZolam 0.5 MG TAB PO PRN (08:19)
[2019-06-25] MEDS ORDERED: SODIUM CHLORIDE 0.9% 1,000 ML in EMPTY BAG 1 BAG IV ONE (08:19)
[2019-06-25] MEDS ORDERED: ASPIRIN 325 MG TAB PO STA (08:19)
[2019-06-25] MEDS ORDERED: ALPRAZolam 0.25 MG TAB PO PRN (08:19)
[2019-06-25] MEDS: VIT A,C & E-LUTEIN-MINERALS 1 EACH TAB PO SCH (08:44)
[2019-06-25] MEDS: ASPIRIN 81 MG PO SCH (08:44)
[2019-06-25] MEDS: FLUTICASONE 50MCG/SPRAY NASAL 16GM EA NOSTRIL SCH (08:44)
[2019-06-25] MEDS: CHOLECALCIFEROL 1,000 UNIT TAB PO SCH (08:45)
[2019-06-25] MEDS: ACETAMINOPHEN TAB 325 MG TAB PO PRN ×2 (08:45→18:13)
[2019-06-25] MEDS: LOSARTAN 50 MG TAB PO SCH ×2 (08:45→20:04)
[2019-06-25] MEDS: CARVEDILOL 6.25 MG TAB PO SCH ×2 (08:49→15:56)
[2019-06-25] MEDS ORDERED: ATORVASTATIN 20 MG TAB PO SCH (09:00)
[2019-06-25] MEDS ORDERED: amLODIPine 2.5 MG TAB PO SCH (09:00)
--- NOTE | 2019-06-25 10:41 | CONS ---
CONSULTATION Mrs. Clark is a 78-year-old female who is followed on a regular basis by Dr. Harris, has a known history of coronary artery disease and recently was noted to have evidence of cardiomyopathy, was scheduled to undergo elective cardiac catheterization this coming Monday by Dr. Pike. She has been complaining of progressive dyspnea on exertion and occasional episodes of chest discomfort. The dyspnea was getting worse. She according to her underwent an echocardiogram recently by Dr. Harris, was found to have significant impairment of her left ventricular systolic function. She has underwent cardiac catheterization in March of 2017 and at that time was found to have a significant obstructive disease involving the LAD as well as the diagonal branch with no obstructive disease in the circumflex with mild disease in the right coronary artery. Her echocardiogram performed at that time showed a preserved ventricular size and systolic function. Subsequently, she was evaluated by the surgical team who recommended proceeding with percutaneous revascularization, underwent stenting of her LAD with a 3.5 x 38 mm Xience in the diagonal branch with a 3.5 x 12 mm Xience stent. She feels that her symptoms of dyspnea on exertion and her fatigue has being be coming worse recently. Her coronary risk factors are positive for hypertension. She is nondiabetic, nonsmoker. Her medication include aspirin, QVAR, vitamin D, Norvasc 2.5 mg daily, fluticasone, and losartan 50 mg daily. REVIEW OF SYSTEMS: RESPIRATORY SYSTEM: She had dyspnea on exertion. She has no recent wheezing or cough. GI SYSTEM: No recent GI bleeding, no peptic ulcer disease. No heartburn. SYSTEM: She has history of renal calculus, has been followed by Dr. Vences. NERVOUS SYSTEM: No stroke or seizure. PHYSICAL EXAMINATION: She is a 78-year-old female, alert, oriented, in no apparent distress. Blood pressure is 160/80 with a heart rate in the 80s. HEAD: Normocephalic. EYES: Sclerae nonicteric. NECK: Good upstroke, no bruit, no venous distension. LUNGS: Clear to auscultation. HEART: Regular rate and rhythm. S1, S2. No S3, plus S4 with a systolic murmur heard at the base. No diastolic murmur. ABDOMEN: Soft, nontender. Positive bowel sounds, no organomegaly. EXTREMITIES: No edema, intact distal pulses. LAB DATA: Revealed a troponin of less than 0.012. BUN and creatinine 14 and 0.83. Her blood sugar is 155. Her EKG performed at [facility] where she was seen initially showed a sinus mechanism with right bundle branch block and nonspecific ST-T wave changes. IMPRESSION: 1. Symptoms of progressive dyspnea on exertion and chest discomfort with no evidence of acute coronary artery syndrome, but with evidence of cardiomyopathy according to the patient, worse in 2017. 2. History of coronary artery disease status post stenting of her left anterior descending artery and diagonal branch for in-stent restenosis. 3. History of hypertension. RECOMMENDATION: I will discuss her case with Dr. Pike. Patient was scheduled to undergo the cardiac catheterization on Monday. Will see if that procedure can be done today. I will adjust her medical regimen. I will obtain the results of her workup that was done in the office. Depending on her progress, further recommendation will be made. Thank you for this consult. Will follow with you. [id number] / IJN: [id number] /
[2019-06-25 12:01] LABS: Glucose,Whole Blood 161 mg/dL (75-99)
[2019-06-25] MEDS ORDERED: IV FLUID CONTINUATION 1,000 ML IV ONE (13:13)
[2019-06-25] MEDS ORDERED: LIDOCAINE 1% INJ 10MG/ML (20 ML MDV) SQ ONE (13:28)
[2019-06-25] MEDS ORDERED: MIDAZOLAM 2 MG/2 ML VIAL IV ONE (13:29)
[2019-06-25] MEDS ORDERED: IOPAMIDOL-370 125ML BTL INJ ONE (13:37)
[2019-06-25] MEDS ORDERED: RX INFO: IV CONTRAST WAS GIVEN 1 EACH MISC MISCELLANE PRN (13:49)
[2019-06-25] MEDS ORDERED: hydrALAZINE HCL 20 MG/ML 1 ML VIAL IV ONE (13:53)
[2019-06-25] MEDS ORDERED: ENALAPRILAT 1.25 MG/ML 1 ML VIAL IV ONE (13:53)
--- NOTE | 2019-06-25 14:42 | P.HPIM ---
History of Present Illness H&P Date: 06/25/19 Chief Complaint: DANIELE, chest pressure This is a 78-year-old female patient of Dr. Trinidad and Dr. Pike with past medical history of coronary artery disease status post stent in 2008 in 2010, hypertension, diabetes mellitus type 2, nephrolithiasis, asthma. Patient was l ast hospitalized in March 2017 which time she was treated for chest pain and underwent heart catheterization with Dr. Pike that revealed mild disease involving the large prominent right coronary artery, normal left main coronary artery, normal left circumflex coronary artery, critical in-stent restenosis involving the left anterior descending artery stent in the midportion with a long tubular lesion involving the diagonal as well. She was seen in consultation by cardiothoracic surgery for a second opinion and subsequently underwent stenting of the mid LAD and proximal LAD with Dr. Pike. Patient has been following with Dr. Vences and plan for lithotripsy but he requested a cardiac workup prior to surgery. Patient has followed in the office and found to have a decreased ejection fraction and was scheduled for heart catheterization on June [address] Pike. Patient now presents with difficulty breathing that started yesterday. She states she could not catch her breath. She also had chest pressure and palpitations as well as nausea without vomiting. She felt clammy. She denies any lightheadedness. She also complained of headache to the left forehead that went into her left eye. Patient was seen at [facility] and was transferred to [facility] for further evaluation. She has been seen by Dr. Voss and is scheduled for heart catheterization today. Review of Systems Constitutional: Denies chills, Denies fatigue, Denies fever, Denies lethargy, Denies malaise, Denies poor appetite Eyes: denies blurred vision, denies pain Ears, nose, mouth and throat: Reports headache, Denies nasal congestion, Denies nasal discharge Cardiovascular: Reports palpitations, Denies chest pain, Denies dyspnea on exertion, Denies edema, Denies leg edema, Denies shortness of breath, Denies syncope Respiratory: Denies cough, Denies cough with sputum, Denies dyspnea, Denies excessive sputum, Denies hemoptysis Gastrointestinal: Reports loss of appetite, Reports nausea, Denies abdominal pain, Denies diarrhea, Denies vomiting Genitourinary: Denies dysuria, Denies hematuria, Denies urgency, Denies urinary frequency Musculoskeletal: Denies frequent falls, Denies gait dysfunction, Denies muscle weakness, Denies myalgias Integumentary: Denies pruritus, Denies rash, Denies wounds Neurological: Denies change in mentation, Denies change in speech, Denies numbness, Denies weakness Psychiatric: Denies anxiety, Denies depression Endocrine: Denies fatigue, Denies weight change Past Medical History Past Medical History: Asthma, Coronary Artery Disease (CAD), Chest Pain / Angina, Diabetes Mellitus, Hypertension, Pneumonia, Renal Disease Additional Past Medical History / Comment(s): Recent echo with low EF-pt states she is to have cardiac cath this Monday, June 28, NIDDM type II-diet controlled, UTIs, nephritis, nephrolithiasis in the past and current bilateral kidney stones that are attached to the kidney oconnor bilaterally-pt states she will need a procedure done to remove stones. History of Any Multi-Drug Resistant Organisms: None Reported Past Surgical History: Breast Surgery, Cholecystectomy, Heart Catheterization, Heart Catheterization With Stent, Hysterectomy, Orthopedic Surgery, Tonsillectomy Additional Past Surgical History / Comment(s): PCIs with stents, L breast biops y-benign, L oophorectomy d/t cyst, D&C, L kidney 2 stents since removed, R rotator cuff repair x2, colonoscopy, bilateral cataract removals/lens implants. Past Anesthesia/Blood Transfusion Reactions: Postoperative Nausea & Vomiting (PONV) Additional Past Anesthesia/Blood Transfusion Reaction / Comment(s): Pt received blood in 1965 without reaction. Date of Last Stent Placement:: 2016 Smoking Status: Never smoker Additional Past Alcohol Use History / Comment(s): Patient is a life-long nonsmoker, no marijuana use, illicit drug use, alcohol use. Patient is a . 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 - Past Family History Father Family Medical History: Liver Disease Additional Family Medical History / Comment(s): Father at the age of 52yrs from liver cirrhosis. He had ETOH abuse. Mother Family Medical History: No Reported History Additional Family Medical History / Comment(s): Mother was healthy and lived to be 93 yrs old. Son(s) Family Medical History: Coronary Artery Disease (CAD), Diabetes Mellitus Additional Family Medical History / Comment(s): patient has 4 children with no major medical problems. Daughter(s) Family Medical History: Coronary Artery Disease (CAD) Additional Family Medical History / Comment(s): Patient has 4 children with no major medical problems. Brother(s) Additional Family Medical History / Comment(s): patient has 3 siblings, one brother from CVA x2. Medications and Allergies Home Medications Medication Instructions Recorded Confirmed Type Acetaminophen Tab [Tylenol] 325 mg PO Q6H PRN 04/19/17 06/24/19 History Aspirin [Adult Low Dose Aspirin EC] 162 mg PO DAILY 04/19/17 06/24/19 History Beclomethasone Dip 80 Mcg/Puff 1 puff INHALATION RT-DAILY PRN 04/19/17 06/24/19 History [Qvar 80 mcg] Vits A,C,E/Lutein/Minerals 1 tab PO DAILY 04/19/17 06/24/19 History [Ocuvite with Lutein Tablet] amLODIPine [Norvasc] 2.5 mg PO DAILY 04/19/17 06/24/19 History Nitroglycerin Sl Tabs [Nitrostat] 0.4 mg SUBLINGUAL Q5M PRN #30 tab 04/22/17 06/24/19 Rx Cholecalciferol (Vitamin D3) 2,000 unit PO DAILY 06/24/19 06/24/19 History [Vitamin D3] Fluticasone Nasal [place] [Flonase 2 spr EA NOSTRIL DAILY 06/24/19 06/24/19 Histo ry Nasal [place]] Losartan Potassium 50 mg PO DAILY 06/24/19 06/24/19 History Allergies Allergy/AdvReac Type Severity Reaction Status Date / Time clarithromycin Allergy Unknown Verified 06/24/19 15:35 morphine Allergy Unknown Verified 06/24/19 15:35 omeprazole Allergy Unknown Verified 06/24/19 15:35 Penicillins Allergy Unknown Verified 06/24/19 15:35 pravastatin Allergy Unknown Verified 06/24/19 15:35 Sulfa (Sulfonamide Allergy Unknown Verified 06/24/19 15:35 Antibiotics) trimethoprim Allergy Unknown Verified 06/24/19 15:35 Physical Exam Vitals: Vital Signs Temp Pulse Resp BP Pulse Ox 06/25/19 04:00 97.9 F 82 16 168/84 97 06/24/19 23:05 97.9 F 77 16 160/83 98 06/24/19 19:50 97.9 F 91 16 194/89 95 06/24/19 14:55 97.5 F L 68 16 179/85 98 Intake and Output 06/24/19 06/25/19 06/25/19 22:59 06:59 14:59 Intake Total 240 Balance 240 Intake: Oral 240 Other: Voiding Method Toilet Toilet # Voids 1 1 Weight 54.5 kg 53.8 kg General appearance: average body habitus, cooperative, no acute distress - EENT Eyes: EOMI, PERRLA, no ptosis, no scleral icterus, normal appearance Ears: bilateral: normal - Neck Neck: no lymphadenopathy, no normal ROM Carotids: bilateral: upstroke normal - Respiratory Respiratory: bilateral: CTA, negative: diminished, dullness, rales, rhonchi, wheezing - Cardiovascular Rhythm: regular Heart sounds: normal: S1, S2 Abnormal Heart Sounds: no systolic murmur, no diastolic murmur ankle Peripheral Edema: bilateral: None - Gastrointestinal General gastrointestinal: no hepatomegaly, normal bowel sounds, soft, no tenderness - Integumentary Integumentary: no calor, no cyanotic, no decreased turgor, normal - Neurologic Neurologic: CNII-XII intact - Musculoskeletal Musculoskeletal: gait normal, strength equal bilaterally - Psychiatric Psychiatric: A&O x's 3, appropriate affect Results CBC & Chem 7: 06/25/19 05:39 Labs: Abnormal Lab Results - Last 24 Hours (Table) 06/24/19 06/24/19 06/25/19 Range/Units 16:36 20:38 05:39 Glucose 155 H (74-99) mg/dL POC Glucose (mg/dL) 145 H 193 H (75-99) mg/dL 06/25/19 Range/Units 06:34 Glucose (74-99) mg/dL POC Glucose (mg/dL) 169 H (75-99) mg/dL Thrombosis Risk Factor Assmnt - DVT/VTE Prophylaxis DVT/VTE Prophylaxis: Mechanical Prophylaxis ordered - Choose All That Apply Any of the Below Risk Factors Present?: Yes Other Risk Factors: Yes Each Risk Factor Represents 3 Points: Age 75 years or older, Positive Lupus Anticoagulant Thrombosis Risk Factor Assessment Total Risk Factor Score: 6 Thrombosis Risk Factor Assessment Level: High Risk Assessment and Plan Plan: 1. Chest pain, difficulty breathing, palpitations nausea. Troponins of been negative. Patient has been seen by cardiology with plan for heart catheterization. Continue aspirin 162 mg daily, Lipitor 40 mg daily, Coreg 6.25 mg twice daily. 2. History of coronary artery disease with previous stenting. Continue as in #1. 3. Nephrolithiasis with plan for lithotripsy in the near future with Dr. Vences. 4. Hyperlipidemia. Continue Lipitor. 5. Hypertension. Continue losartan 50 mg twice daily. Hold amlodipine. 6. GI prophylaxis. Pepcid. 7. DVT prophylaxis. Early ambulation, SCDs and HARSH hose. CODE STATUS: Full code. Patient will be admitted to the hospital for a minimum of 2 night stay. Discharge plan: Return home. Impression and plan of care have been directed as dictated by the signing physician. Kamala Owen nurse practitioner acting as scribe for signing physician.
[2019-06-25] MEDS: SODIUM CHLORIDE 0.9% 1,000 ML IV SCH (14:46)
--- NOTE | 2019-06-25 16:23 | CC ---
CARDIAC CATHETERIZATION REPORT DATE OF SERVICE: 06/25/2019 PERFORMING PHYSICIAN: Luis Pike MD. PROCEDURES PERFORMED: 1. Selective right and left coronary angiogram. 2. Left heart catheterization. INDICATION: This is a very pleasant 78-year-old female patient with history of coronary artery disease and prior stenting of the LAD who sees Dr. Harris on a regular basis. She was diagnosed recently with cardiomyopathy. She was scheduled to undergo a heart catheterization this coming Monday but presented to the hospital with symptoms of exertional chest discomfort and shortness of breath. Because of that, a heart catheterization was advised. APPROACH: Right common femoral artery. COMPLICATIONS: None. LEVEL OF SEDATION: Moderate, with sedation length of 14 minutes. PROCEDURE DESCRIPTION: After obtaining informed consent, the patient was brought to the cardiac labor law professor. The right common femoral artery was cannulated using micropuncture technique. The micropuncture wire passed easily. Then I placed a 6-Mauritanian sheath 11 cm. I did perform selective right and left coronary angiogram with JR43.5 and JL3.5 catheters. Left heart catheterization was performed using a 6-[place]auritanian pigtail catheter. The procedure was completed without any complication. SELECTIVE CORONARY ANGIOGRAM: 1. The RCA is a large-caliber vessel. It is a dominant vessel. The RCA in the proximal, mid and distal portions appeared to be angiographically normal. Distally it bifurcates into PDA and PLV branches. The PDA branch appeared to be angiographically normal and the PLV branch has disease that appeared to be in the range of 30% to 40%. only. 2. The left main is angiographically normal. It bifurcates into LCX and left anterior descending artery. 3. The left circumflex is a large-caliber vessel. It is a nondominant vessel. The left circumflex appeared to be angiographically normal. In the mid portion it gives rise to a large OM branch which seems to be angiographically normal. 4. The LAD. The proximal LAD appeared to be angiographically normal. The mid LAD is stented with mild in-stent restenosis. The LAD distally appeared to be angiographically normal. The LAD gives rise to 3 diagonal branches. The first diagonal branch appeared to be a small-caliber vessel with critical disease in its ostium. The second diagonal branch appeared to be angiographically normal. CONCLUSION: 1. Mild to moderate in-stent restenosis involving the LAD in the mid portion. 2. Normal left ventricular end-diastolic pressure. POST-PROCEDURE MANAGEMENT: 1. Maximize medical treatment. 2. Aggressive cholesterol control. 3. Follow up with the patient. DISHA / RAFAT: [id number] /
[2019-06-25 17:00] LABS: Glucose,Whole Blood 147 mg/dL (75-99)
[2019-06-25 21:41] LABS: Glucose,Whole Blood 191 mg/dL (75-99)
[2019-06-26 06:16] LABS: Basophils # (A) 0.1 k/uL (0-0.2); Basophils % (A) 1 %; Eosinophils # (A) 0.2 k/uL (0-0.7); Eosinophils % (A) 3 %; HGB 12.7 gm/dL (11.4-16.0); Lymphocytes # (A) 2.1 k/uL (1.0-4.8); Lymphocytes % (A) 28 %; MCH 33.4 pg (25.0-35.0); MCHC 36.2 g/dL (31.0-37.0); MCV 92.3 fL (80.0-100.0); Mean Platelet Volume 6.5; Monocytes # (A) 0.5 k/uL (0-1.0); Monocytes % (A) 6 %; Neutrophils # (A) 4.6 k/uL (1.3-7.7); Neutrophils % (A) 61 %; Platelet Count 237 k/uL (150-450); RBC 3.79 m/uL (3.80-5.40); RDW 12.4 % (11.5-15.5); WBC 7.6 k/uL (3.8-10.6)
[2019-06-26 06:16] LABS: Glucose,Whole Blood 148 mg/dL (75-99)
[2019-06-26 06:25] LABS: Calcium 9.5 mg/dL (8.4-10.2); Potassium 3.4 mmol/L (3.5-5.1)
[2019-06-26] MEDS: CARVEDILOL 6.25 MG TAB PO SCH (06:43)
[2019-06-26 08:56] VITALS: BP 144/70; PULSE 71; RESP 18; TEMP 98.1
[2019-06-26] MEDS: SODIUM CHLORIDE 0.9% 1,000 ML IV SCH (08:57)
[2019-06-26] MEDS ORDERED: ATORVASTATIN 40 MG TAB PO SCH (09:00)
--- NOTE | 2019-06-26 09:00 | PN ---
PROGRESS NOTE Mrs. Clark is a 78-year-old female who was transferred from [facility] with symptoms of head and chest discomfort with dyspnea, underwent cardiac catheterization yesterday by Dr. Pike and was found to have no evidence of significant progression of disease. She is feeling well today. Her breathing is stable. She denies any dizziness. No palpitation. She denies any nausea. She continues to be on aspirin once a day, Lipitor 40 mg daily, Coreg 6.5 mg twice a day, losartan 50 mg twice a day. PHYSICAL EXAMINATION: Blood pressure 156/70 with a heart rate in the 70s. LUNGS: Clear. HEART: Regular rate and rhythm. S1, S2. No S3. No rub. ABDOMEN: Soft, nontender. Right groin, no hematoma. IMPRESSION: 1. Cardiomyopathy of unclear etiology. No evidence of significant progression of disease. 2. Coronary artery disease, stable. 3. Hypertension. 4. Hyperlipidemia. RECOMMENDATION: From the cardiac standpoint, she should be able to be discharged home today and follow as an outpatient with Dr. Harris. Her blood pressure will be followed as an outpatient. At this time, I will increase the dose of her Coreg to 12.5 mg twice a day, and depending on her progress, further recommendation will be made. MMODL / IJN: [id number] /
[2019-06-26] MEDS: VIT A,C & E-LUTEIN-MINERALS 1 EACH TAB PO SCH (09:06)
[2019-06-26] MEDS: LOSARTAN 50 MG TAB PO SCH (09:06)
[2019-06-26] MEDS: CHOLECALCIFEROL 1,000 UNIT TAB PO SCH (09:07)
[2019-06-26] MEDS: FLUTICASONE 50MCG/SPRAY NASAL 16GM EA NOSTRIL SCH (09:07)
[2019-06-26] MEDS: ASPIRIN 81 MG PO SCH (09:07)
[2019-06-26] MEDS: ACETAMINOPHEN TAB 325 MG TAB PO PRN (09:09)
[2019-06-26] MEDS ORDERED: POTASSIUM CHLORIDE ER 20 MEQ TAB.ER PO STA (11:38)
[2019-06-26 11:58] LABS: Glucose,Whole Blood 174 mg/dL (75-99)
--- NOTE | 2019-06-26 16:13 | P.DS ---
Providers Date of admission: 06/24/19 14:42 Expected date of discharge: 06/26/19 Attending physician: Justin Brown Consults: 06/24/19 16:04 Consult Physician Routine Consulting Provider: Domo Harris Consult Reason/Comments: cad Do you want consulting provider notified?: Yes Primary care physician: Pablo Trinidad [place] [facility] Course: This is a 78-year-old female patient of Dr. Trinidad and Dr. Harris with past medical history of coronary artery disease status post stent in 2008 in 2010, hypertension, diabetes mellitus type 2, nephrolithiasis, asthma. Patient was last hospitalized in March 2017 which time she was treated for chest pain and underwent heart catheterization with Dr. Pike that revealed mild disease involving the large prominent right coronary artery, normal left main coronary artery, normal left circumflex coronary artery, critical in-stent restenosis involving the left anterior descending artery stent in the midportion with a long tubular lesion involving the diagonal as well. She was seen in consultation by cardiothoracic surgery for a second opinion and subsequently underwent stenting of the mid LAD and proximal LAD with Dr. Pike. Patient has been following with Dr. Vences and plan for lithotripsy but he requested a cardiac workup prior to surgery. Patient has followed in the office and found to have a decreased ejection fraction and was scheduled for heart catheterization on June [address] Pike. Patient now presents with difficulty breathing that started yesterday. She states she could not catch her breath. She also had chest pressure and palpitations as well as nausea without vomiting. She felt clammy. She denies any lightheadedness. She also complained of headache to the left forehead that went into her left eye. Patient was seen at [facility] and was transferred to [facility] for further evaluation. She has been seen by Dr. Voss and is scheduled for heart catheterization today. 06/26: Yesterday, patient underwent heart catheterization with Dr. Pike the found no evidence of significant progression of disease. There is mild to moderate in-stent restenosis involving the LAD in the midportion. Normal left ventricular end-diastolic pressure. Recommendations to maximize medical treatment, aggressive cholesterol control and follow-up. Patient has been seen by Dr. Voss this morning and cleared for discharge. He has increased her dose of Coreg to 12.5 mg twice a day. Patient denies having any chest pain, shortness of breath headedness or dizziness at the time of evaluation. Family member is at bedside. Patient will be discharged home today in stable condition. Discharge diagnoses: 1. Chest pain, difficulty breathing, palpitations nausea. 2. History of coronary artery disease with previous stenting. 3. Nephrolithiasis with plan for lithotripsy in the near future with Dr. Vences. 4. Hyperlipidemia. 5. Hypertension. Discharge plan: Return home. Impression and plan of care have been directed as dictated by the signing physician. Kamala Owen nurse practitioner acting as scribe for signing physician. Patient Condition at Discharge: Good Plan - Discharge Summary Discharge Rx Participant: No New Discharge Prescriptions: New Carvedilol [Coreg*] 12.5 mg PO BID-W/MEALS #60 tab Losartan [Cozaar] 50 mg PO BID #60 tab Atorvastatin [Lipitor] 40 mg PO DAILY #30 tab Continue Vits A,C,E/Lutein/Minerals [Ocuvite with Lutein Tablet] 1 tab PO DAILY Beclomethasone Dip 80 Mcg/Puff [Qvar 80 mcg] 1 puff INHALATION RT-DAILY PRN PRN Reason: Shortness Of Breath Aspirin [Adult Low Dose Aspirin EC] 162 mg PO DAILY Acetaminophen Tab [Tylenol] 325 mg PO Q6H PRN PRN Reason: Pain Nitroglycerin Sl Tabs [Nitrostat] 0.4 mg SUBLINGUAL Q5M PRN #30 tab PRN Reason: Chest Pain Cholecalciferol (Vitamin D3) [Vitamin D3] 2,000 unit PO DAILY Fluticasone Nasal [place] [Flonase Nasal [place]] 2 spr EA NOSTRIL DAILY Discontinued amLODIPine [Norvasc] 2.5 mg PO DAILY Losartan Potassium 50 mg PO DAILY Discharge Medication List Acetaminophen Tab [Tylenol] 325 mg PO Q6H PRN 04/19/17 [History] Aspirin [Adult Low Dose Aspirin EC] 162 mg PO DAILY 04/19/17 [History] Beclomethasone Dip 80 Mcg/Puff [Qvar 80 mcg] 1 puff INHALATION RT-DAILY PRN 04/19/17 [History] Vits A,C,E/Lutein/Minerals [Ocuvite with Lutein Tablet] 1 tab PO DAILY 04/19/17 [History] Nitroglycerin Sl Tabs [Nitrostat] 0.4 mg SUBLINGUAL Q5M PRN #30 tab 04/22/17 [Rx] Cholecalciferol (Vitamin D3) [Vitamin D3] 2,000 unit PO DAILY 06/24/19 [History] Fluticasone Nasal [place] [Flonase Nasal [place]] 2 spr EA NOSTRIL DAILY 06/24/19 [History] Atorvastatin [Lipitor] 40 mg PO DAILY #30 tab 06/26/19 [Rx] Carvedilol [Coreg*] 12.5 mg PO BID-W/MEALS #60 tab 06/26/19 [Rx] Losartan [Cozaar] 50 mg PO BID #60 tab 06/26/19 [Rx] Follow up Appointment(s)/Referral(s): Domo Harris MD [STAFF PHYSICIAN] - 07/04/19 8:30 am ( with [employer]) Pablo Trinidad MD [Primary Care Provider] - 1 Week (Office is closed. Please call to schedule appointment) Patient Instructions/Handouts: Left Heart Catheterization (DC), Heart Healthy Diet (DC) Activity/Diet/Wound Care/Special Instructions: CARDIAC CATH 1. Support your puncture site by applying firm, steady pressure whenever you cough, laugh, sneeze or bear down to have a bowel movement (2-day restriction). 2. Watch for any excessive bruising, active bleeding, a firm knot forming under your skin, extreme tenderness and signs of infection (redness, swelling, fever). 3. Shower daily, do not soak puncture in a tub bath, jacuzzi, pool, fields etc. for 1 week. This is to prevent risk of infection. 4. Drink plenty of fluids the day of and day after your procedure to flush contrast dye out of your kidneys. 5. Take all medications as directed. Never stop any new medication without your physicians OK. 6. No driving for 2 days after procedure. 7. 10- pound weight lifting restriction for 1 week. 8. Low sodium/low fat diet. 9. Activity limited until follow up appointment with your preparation room worker. In case of any problems, please call [facility], [facility] Bill @ [phone]. Discharge Disposition: HOME SELF-CARE
[2019-06-26] MEDS ORDERED: CARVEDILOL 12.5 MG TAB PO SCH (17:30)
== END 2019-06-26 13:05 | disposition home or self-care (01) ==
LOC: INTOOBSV 14:42 → UNDOADMIN 14:42 → 3SCARD 14:42 → UNDODISIN 06-26 13:05
PROVIDERS: ADMIT Internal Medicine Geriatric Medicine; ATTEND Internal Medicine Geriatric Medicine
DX: R07.9 Chest pain, unspecified (principal); I42.9 Cardiomyopathy, unspecified; T82.855A Stenosis of coronary artery stent, initial encounter; R06.00 Dyspnea, unspecified; R00.2 Palpitations; R11.0 Nausea; E11.9 Type 2 diabetes mellitus without complications; E78.5 Hyperlipidemia, unspecified; I10 Essential (primary) hypertension; I25.10 Atherosclerotic heart disease of native coronary artery without angina pectoris; J45.909 Unspecified asthma, uncomplicated; Z79.82 Long term (current) use of aspirin; Z79.899 Other long term (current) drug therapy; Z82.3 Family history of stroke; Z82.49 Family history of ischemic heart disease and other diseases of the circulatory system; Z83.3 Family history of diabetes mellitus; Z87.442 Personal history of urinary calculi; Z90.710 Acquired absence of both cervix and uterus; Z90.721 Acquired absence of ovaries, unilateral; Y83.1 Surgical operation with implant of artificial internal device as the cause of abnormal reaction of the patient, or of later complication, without mention of misadventure at the time of the procedure; Z87.440 Personal history of urinary (tract) infections; Z87.01 Personal history of pneumonia (recurrent); Z90.49 Acquired absence of other specified parts of digestive tract; Z88.1 Allergy status to other antibiotic agents; Z88.0 Allergy status to penicillin; Z88.2 Allergy status to sulfonamides; Z88.8 Allergy status to other drugs, medicaments and biological substances; Z98.42 Cataract extraction status, left eye; Z98.41 Cataract extraction status, right eye; Z96.1 Presence of intraocular lens; Z81.1 Family history of alcohol abuse and dependence; Z83.79 Family history of other diseases of the digestive system; Z83.1 Family history of other infectious and parasitic diseases
CPT/HCPCS: 93458; 80048 ×2; 83735; 84484; 85025; G0378 ×3; G0379; C1894; C1769 ×2; J2250; J0360; J2001; Q9967

== ENCOUNTER 2022-12-01 08:06 | Day surgery (SDC) | payer MEDICARE ==
[2022-11-29 12:10] VITALS: BMI 22.4
--- NOTE | 2022-11-30 22:02 | P.GSHP ---
History of Present Illness H&P Date: 11/30/22 Chief Complaint: Abdominal pain The patient is an 82-year-old white female with a history of recurrent urolithiasis. She recently presented with intermittent lower abdominal pain. Computed tomography scan shows 2-3 right renal calculi measuring up to 8 mm in size, and 3 left renal calculi measuring up to 6 mm in size. She desires removal of the calculi and has elected to undergo ureteroscopic removal of the calculi rather than ESWL. - Constitutional Constitutional: Denies chills, Denies fever - Gastrointestinal Gastrointestinal: Reports abdominal pain - Genitourinary (Female) Genitourinary: Reports dysuria, Reports kidney stones, Denies hematuria Past Medical History Past Medical History: Asthma, Coronary Artery Disease (CAD), Chest Pain / Angina, Diabetes Mellitus, Hypertension, Pneumonia Additional Past Medical History / Comment(s): KIDNEY STONES History of Any Multi-Drug Resistant Organisms: None Reported Past Surgical History: Breast Surgery, Cholecystectomy, Coronary Bypass/CABG, Heart Catheterization, Heart Catheterization With Stent, Hysterectomy, Orthopedic Surgery, Tonsillectomy Additional Past Surgical History / Comment(s): cardiac stents-(pt thinks 2-3 stents?), L breast biopsy-benign, L oophorectomy d/t cyst, D&C, left ureteroscopy with laser lithotripsy and stone basketing x2, R rotator cuff repair x2, colonoscopy, bilateral cataract removals/lens implants. Past Anesthesia/Blood Transfusion Reactions: Postoperative Nausea & Vomiting (PONV) Additional Past Anesthesia/Blood Transfusion Reaction / Comment(s): Pt received blood in 1965 without reaction. Pt states only reaction she has had to anesthesia was during her CABG and she had horrible hallucinations and nightmares and states she had to be vented a few times. She is unsure of where exactly she had her surgery and does not know what med/meds may have caused this. Date of Last Stent Placement:: 2016 Past Psychological History: Anxiety Smoking Status: Never smoker Past Alcohol Use History: None Reported Past Drug Use History: None Reported - Past Family History Father Family Medical History: Liver Disease Additional Family Medical History / Comment(s): Father at the age of 52yrs from liver cirrhosis. He had ETOH abuse. Mother Family Medical History: No Reported History Additional Family Medical History / Comment(s): Mother was healthy and lived to be 93 yrs old. Son(s) Family Medical History: Coronary Artery Disease (CAD), Diabetes Mellitus Additional Family Medical History / Comment(s): patient has 4 children with no major medical problems. Daughter(s) Family Medical History: Coronary Artery Disease (CAD) Additional Family Medical History / Comment(s): Patient has 4 children with no major medical problems. Brother(s) Family Medical History: CVA/TIA Additional Family Medical History / Comment(s): one brother from CVA Medications and Allergies Home Medications Medication Instructions Recorded Confirmed Type Aspirin [Adult Low Dose Aspirin EC] 81 mg PO DAILY 04/19/17 11/29/22 History Beclomethasone Dip 80 Mcg/Puff 1 puff INHALATION RT-DAILY PRN 04/19/17 11/29/22 History [Qvar 80 mcg] Vits A,C,E/Lutein/Minerals 1 tab PO DAILY 04/19/17 11/29/22 History [Ocuvite with Lutein Tablet] Nitroglycerin Sl Tabs [Nitrostat] 0.4 mg SUBLINGUAL Q5M PRN #30 tab 04/22/17 11/29/22 Rx Cholecalciferol (Vitamin D3) 2,000 unit PO DAILY 06/24/19 11/29/22 History [Vitamin D3] Chromium Picolinate 200 mcg PO DAILY 11/29/22 11/29/22 History Cyanocobalamin (Vitamin B-12) 1,000 mcg PO DAILY 11/29/22 11/29/22 History [Vitamin B-12] Garlic 100 mg PO DAILY 11/29/22 11/29/22 History Isosorbide Mononitrate ER [Imdur] 60 mg PO DAILY 11/29/22 11/29/22 History Losartan [Cozaar] 100 mg PO DAILY 11/29/22 11/29/22 History Magnesium 400 mg PO DAILY 11/29/22 11/29/22 History carvediloL [Coreg*] 25 mg PO BID-W/MEALS 11/29/22 11/29/22 History metFORMIN HCL [Glucophage] 500 mg PO DAILY 11/29/22 11/29/22 History Allergies Allergy/AdvReac Type Severity Reaction Status Date / Time clarithromycin Allergy Unknown Verified 11/29/22 11:47 morphine Allergy Unknown Verified 11/29/22 11:47 omeprazole Allergy Unknown Verified 11/29/22 11:47 Penicillins Allergy Unknown Verified 11/29/22 11:47 pravastatin Allergy Unknown Verified 11/29/22 11:47 Sulfa (Sulfonamide Allergy Unknown Verified 11/29/22 11:47 Antibiotics) trimethoprim Allergy Unknown Verified 11/29/22 11:47 Surgical - Exam - General well developed, well nourished, no distress - Respiratory normal respiratory effort - Abdomen Abdomen: soft, non tender, no guarding, no rigid, no rebound - Psychiatric oriented to time, oriented to person, oriented to place, speech is normal, memory intact Results - Imaging CT scan - abdomen: report reviewed, image reviewed Assessment and Plan (1) Calculus of kidney Status: Acute Code(s): N20.0 - CALCULUS OF KIDNEY SNOMED Code(s): 60509231 Plan: Cystoscopy, bilateral ureteroscopy with Holmium laser lithotripsy and possible stone basketing, bilateral ureteral stent insertion. The procedure has been reviewed in detail with the patient. She has been made aware of potential risks, which include anesthesia, bleeding, infection, ureteral injury, and inability to remove all calculi. She is aware of the possible need for secondary treatment.
[~2022-12-01 08:06] MED LIST: DEXAMETHASONE SOD PHOSPHATE 4 MG/ML 1 ML VIAL IV ONE; LACTATED RINGERS 1,000 ML IV SCH; ONDANSETRON 4 MG/2 ML VIAL IVP ONE; fentaNYL (PF) 50 MCG/ML 2 ML AMP IV PRN
--- NOTE | 2022-12-01 08:42 | XR ---
EXAMINATION TYPE: XR KUB DATE OF EXAM: 12/01/2022 COMPARISON: 02/08/2017 HISTORY: Presurgical TECHNIQUE: One view abdominal series FINDINGS: The osseous structures are intact. The bowel gas pattern is nonspecific. Lung bases are clear. Surg ical clips in the gallbladder fossa. Left kidney: There are approximately 3 calcifications overlying the left kidney all measuring 3 mm. Right kidney: Approximately 1 calcification overlying the upper pole right kidney measuring maximal d imension of 5.6 mm. Right paraspinal calcification overlying the right transverse process of L3 could be within the course of the right ureter.. Hypertrophic and degenerative changes of the spine. Arthropathy of the hips. Left hemipelvic calcific ations appear vascular. IMPRESSION: 1. Bilateral nephrolithiasis as measured and discussed above
[2022-12-01 09:22] LABS: Glucose,Whole Blood 178 mg/dL (70-110)
[2022-12-01] MEDS ORDERED: METOPROLOL TARTRATE 5 MG/5 ML VIAL IVP ONE ×2 (09:22→12:05)
[2022-12-01] MEDS ORDERED: SUCCINYLCHOLINE CHLORIDE 200 MG/10 ML VIAL IV ONE (09:48)
[2022-12-01] MEDS ORDERED: LIDOCAINE 2% INJ 20 MG/ML (2 ML VIAL) ONE (09:48)
[2022-12-01] MEDS ORDERED: MIDAZOLAM 2 MG/2 ML VIAL ONE (09:48)
[2022-12-01] MEDS ORDERED: PROPOFOL 10 MG/ML 20 ML VIAL IV ONE (09:48)
[2022-12-01] MEDS ORDERED: fentaNYL (PF) 50 MCG/ML 2 ML AMP ONE (09:48)
[2022-12-01] MEDS ORDERED: IOPAMIDOL-370 100ML BTL MISCELLANE ONE ×2 (10:12)
[2022-12-01] MEDS ORDERED: hydrALAZINE HCL 20 MG/ML 1 ML VIAL IV ONE (11:37)
--- NOTE | 2022-12-01 11:41 | FL ---
EXAMINATION TYPE: FL cystogram DATE OF EXAM: 12/01/2022 COMPARISON: NONE HISTORY: Fluoroscopy TECHNIQUE: Fluoroscopy. FINDINGS: Fluoroscopic guidance was provided during procedure performed. The D AP and [id number]. IMPRESSION: As Above.
[2022-12-01 11:44] VITALS: TEMP 96.8
--- NOTE | 2022-12-01 12:06 | P.OP ---
Date of Procedure: 12/01/22 Preoperative Diagnosis: Bilateral renal calculi Postoperative Diagnosis: Same Procedure(s) Performed: Cystoscopy, bilateral retrograde pyelograms, bilateral ureteroscopy with Holmium laser lithotripsy and stent insertion. Anesthesia: CHANTELLA Surgeon: Damaso Vences Estimated Blood Loss (ml): 10 IV fluids (ml): 500 Pathology: none sent Condition: stable Disposition: PACU Indications for Procedure: The patient is an 82-year-old white female with a history of recurrent urolithiasis. She recently presented with intermittent lower abdominal pain. CT scan in 2021 revealed 2-3 right renal calculi measuring up to 8 mm in size, and 3 left renal calculi measuring up to 6 mm in size. 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 She desires removal of the calculi and has elected to undergo ureteroscopic removal of the calculi rather than ESWL. Operative Findings: Right upper pole renal calculus, left lower pole renal calculus, each measuring approximately 4-5 mm. Both fragmented completely. No other calculi seen. Description of Procedure: The patient was taken to the operating room and placed in the dorsolithotomy position, with legs supported in Emerson stirrups. The external genitalia was prepped and draped sterilely. The 30 lens was used to introduce the 21-E[place]ian [place] cystoscopic sheath through the urethra and into the bladder under direct vision. The bladder was examined in its entirety. Both ureteral orifices were normal anatomic location and configuration, and clear urine effluxed from both. No tumors or foreign bodies were seen. Using a 10-Egyptian cone-tipped catheter, bilateral retrograde pyelograms were performed. The course of the ureter was normal in course and caliber bilaterally, with no filling defects seen. Likewise, the renal pelvis appeared normal. There was no evidence of hydronephrosis. A 0.038 inch Glidewire was passed through the cystoscope. The right ureteral orifice was cannulated, and the Glidewire was advanced up to the renal pelvis. The cystoscope was removed, and an 11/13-Egyptian ureteral access catheter was passed over the wire, up to the distal ureter as resistance was met in the ureteral access catheter could not be passed beyond this point. The [place] [employer] flexible ureteroscope was then passed through the ureteral access catheter sheath and advanced under direct vision, up to the right renal pelvis. Each calyx was examined. A 5 mm calculus was identified within an upper pole calyx. The 272 micron Holmium laser probe was passed through the ureteroscope, and lithotripsy was performed. Given the difficulty advancing the ureteroscope, the decision was made to dust the calculus completely and avoid stone basketing. Once this was completed, the remaining calyces were examined and no additional calculi were identified. Pullout ureteroscopy showed no evidence of ureteral trauma. The identical procedures was then performed on the left side. Once again, the ureteral access catheter could only be passed into the distal ureter. Each calyx was examined, and the only calculus identified was located within a lower pole calyx. This calculus also measured approximately 5 mm in size, and was dusted completely. The remaining calyces were once again examined, but no additional calculi could be identified. Specifically, the 2-3 mm upper pole calculus could not be identified. Pullout ureteroscopy showed no evidence of ureteral trauma. The Glidewire was passed through the ureteroscope, which was removed. The Glidewire was then backloaded into the cystoscope, which was passed into the bladder. A 24 cm, 4.8-Egyptian double-J ureteral stent was placed over the wire. Proper stent positioning was verified fluoroscopically and endoscopically. An identical stent was then placed on the right side. The bladder was emptied and the cystoscope removed. The patient tolerated the procedure well and was taken to the recovery room in stable condition. [facility] Report: Procedure Acuity: Elective Stone Size and Location: Right upper pole, left lower pole, approximately 4-5 mm each Ureteral Dilation: No Ureteral Access Sheath Used: Yes Stone Sent for Analysis: No All Stones/Fragments Were Removed with a Basket: No Complications: No Preoperative Antibiotics Given: Yes Stent Placed: Yes If Stent Placed, Was String Left Attached: No If Stent Placed, When is it to be Removed: 1 week Discharge Medications: Toradol, oxybutynin chloride
[2022-12-01 12:24] VITALS: RESP 16
[2022-12-01 14:30] VITALS: BP 186/90; PULSE 70
== END 2022-12-01 15:02 | disposition home or self-care (01) ==
LOC: OR 08:06
PROVIDERS: ATTEND Urology
DX: N20.0 Calculus of kidney (principal); J45.909 Unspecified asthma, uncomplicated; I25.10 Atherosclerotic heart disease of native coronary artery without angina pectoris; I10 Essential (primary) hypertension; E11.36 Type 2 diabetes mellitus with diabetic cataract; F41.9 Anxiety disorder, unspecified; Z87.442 Personal history of urinary calculi; Z90.49 Acquired absence of other specified parts of digestive tract; Z90.710 Acquired absence of both cervix and uterus; Z90.89 Acquired absence of other organs; Z95.1 Presence of aortocoronary bypass graft; Z82.49 Family history of ischemic heart disease and other diseases of the circulatory system; Z83.3 Family history of diabetes mellitus; Z82.3 Family history of stroke; Z79.82 Long term (current) use of aspirin; Z79.51 Long term (current) use of inhaled steroids; Z88.0 Allergy status to penicillin; Z88.2 Allergy status to sulfonamides; Z88.1 Allergy status to other antibiotic agents; Z79.899 Other long term (current) drug therapy
CPT/HCPCS: 52356; 74430; 74018; C1713; C1758; C1769; J2250; J0330; J0360; J0690; J2405; J3010; J2704; Q9967; J1790; J2001

== ENCOUNTER → 2023-01-09 | Outpatient (CLI) | payer MEDICARE ==
--- NOTE | 2023-01-09 13:13 | XR ---
EXAMINATION TYPE: XR abdomen 1V DATE OF EXAM: 01/09/2023 HISTORY: Pain Comparison: 12/01/2022 Single KUB is submitted for interpretation. Findings: Right renal calculi: Previously noted right-sided renal calculus is not clearly demonstrated at this time. Right ureteral calculi: None Visualized. Left renal calculi: 3.6 mm calculus upper pole left kidney. Left ureteral calculi: None Visualized. Pelvic calcifications: Multiple phleboliths within the pelvic basin and vascular calcifications. Bowel gas pattern is unremarkable. No free air. No mass effects. IMPRESSION: 1. 3.6 mm calculus upper pole left kidney.
== END | disposition home or self-care (01) ==
LOC: RADXRMAIN 12:52
PROVIDERS: ATTEND Urology
DX: N20.0 Calculus of kidney (principal)
CPT/HCPCS: 74018

== ENCOUNTER → 2024-04-11 | Outpatient (CLI) | payer MEDICARE | END | disposition home or self-care (01) | LOC: RADECHMAIN 06:43 | PROVIDERS: ATTEND Psychiatry & Neurology Neurology | DX: I48.91 Unspecified atrial fibrillation (principal) | CPT/HCPCS: 93270 ==